=== PATIENT | female | born 1940 | race Caucasian/White ===

== ENCOUNTER → 2016-05-11 | Outpatient (REF) | payer MEDICARE, OTHER | LOC: M SMT 13:33 | PROVIDERS: ATTEND Urology | DX: Z85.51 Personal history of malignant neoplasm of bladder (principal) ==

== ENCOUNTER → 2016-07-08 | Outpatient (CLI) | payer MEDICARE, OTHER ==
[2016-07-08 12:50] LABS: BASO % 0.6 % (0.0-1.0); EOS # 0.2 K/mm3 (0.0-0.50); LARGE UNSTAINED CELL # 0.1 K/mm3 (0.0-0.4); LARGE UNSTAINED CELL % 2.1 % (0.0-4.0); LYMPH # 1.6 K/mm3 (1.5-4.5); LYMPH % 20.2 % (24.0-44.0); MEAN CORPUSCULAR HEMOGLOBIN 31.8 pg (27.0-33.0); MEAN CORPUSCULAR HGB CONC 34.9 g/dl (32.0-36.5); MEAN CORPUSCULAR VOLUME 91.3 fl (80.0-96.0); MONO # 0.4 K/mm3 (0.0-0.8); MONO % 5.4 % (0.0-5.0); NEUTROPHILS # 4.8 K/mm3 (1.8-7.7); NEUTROPHILS % 68.9 % (36.0-66.0); PLATELET COUNT, AUTOMATED 200 k/mm3 (150-450); RED CELL DISTRIBUTION WIDTH 12.6 % (11.5-14.5)
[2016-07-08 13:40] LABS: ALBUMIN 3.8 GM/DL (3.2-5.2); ALBUMIN/GLOBULIN RATIO 1.15 (1.00-1.93); ALKALINE PHOSPHATASE 90 U/L (45-117); ALT/SGPT 29 U/L (12-78); ANION GAP 8 MEQ/L (8-16); AST/SGOT 22 U/L (15-37); BILIRUBIN,TOTAL 0.6 MG/DL (0.2-1.0); BLOOD UREA NITROGEN 12 MG/DL (7-18); CALCIUM LEVEL 8.9 MG/DL (8.8-10.2); CARBON DIOXIDE LEVEL 30 MEQ/L (21-32); CHLORIDE LEVEL 105 MEQ/L (98-107); CHOLESTEROL LEVEL 215 MG/DL (<200); CREATININE FOR GFR 0.84 MG/DL (0.55-1.02); FREE T4 1.33 NG/DL (0.76-1.46); GLOMERULAR FILTRATION RATE > 60.0 (>39); GLUCOSE, FASTING 120 MG/DL (83-110); POTASSIUM SERUM 3.9 MEQ/L (3.5-5.1); SODIUM LEVEL 143 MEQ/L (136-145); TOTAL PROTEIN 7.1 GM/DL (6.4-8.2); TRIGLYCERIDES LEVEL 233 MG/DL (<150)
== END ==
LOC: M LAB 11:47
PROVIDERS: ATTEND Family Medicine
DX: I10 Essential (primary) hypertension (principal); R73.01 Impaired fasting glucose; E03.9 Hypothyroidism, unspecified

== ENCOUNTER → 2016-09-07 | Outpatient (CLI) | payer MEDICARE, OTHER ==
--- NOTE | 2016-09-07 15:55 | REPMRS ---
Patient History The patient states she has not had a clinical breast exam in over a year. Patient is postmenopausal, has history of bladder cancer at age 66, had previous chemotherapy at age 66, and is nulliparous. No known family history of cancer. Benign FNA biopsy of the left breast, 1984. Digital Woman Screen Mammo: September 07, 2016 - Exam #: [id number] Bilateral CC and MLO view(s) were taken. Technologist: Radha Rao, Technologist Prior study comparison: August 30, 2015, digital woman screen mammo performed at [facility] [place] to [facility]. August 29, 2014, digital woman screen mammo performed at [facility] [place] to [facility]. FINDINGS: There are scattered fibroglandular densities. There has been no change in the appearance of the mammogram from the prior studies. There is a moderate amount of residual fibroglandular tissue which is moderately dense and fairly symmetric. There is no interval development of dominant mass, architectural distortion, or clustered microcalcification suggestive of malignancy. There are scattered, small, benign calcifications of doubtful clinical significance. No significant changes when compared with prior studies. ASSESSMENT: BI-RADS/ACR category 2 mammogram. Benign finding(s). Recommendation Routine screening mammogram in 1 year (for women over age 40). This mammogram was interpreted with the aid of an FDA-approved computer-aided dectection system. A. Negative x-ray reports should not delay biopsy if a dominant or clinically suspicious mass is present. B. Four to eight percent of cancers are not identified by mammography. C. Adenosis and dense breast may obscure an underlying neoplasm. Electronically Signed By: Jasbir Fitzpatrick MD 09/07/16 [id number]
--- NOTE | 2016-09-09 10:53 | DEXA ---
AP SPINE L1 - L4 1.101 -0.8 1.0 LT FEMUR TOTAL 0.901 -0.8 0.8 RT FEMUR TOTAL 0.906 -0.8 0.9 TOTAL BODY TOTAL OTHER DUAL FEMUR FRAX* ASSESSMENT Risk factors: History of adult fracture. 10 year probability of fracture Major osteoporotic fracture 19.0 % Hip fracture 4.3 % COMMENTS: Normal bone densitometry of the spine. There is low bone density of the left hip based on femoral neck T score -1.8 left. There is low bone density of the right hip based on femoral neck T score -2.0 right. There is degenerative change in the spine which may artificially elevate the BMD. The increased density of the spine does represent a significant change since 06/2011. The decreased density of the left hip does not represent a significant change since 08/13/2011. The increased density of the right hip does represent a significant change. The density of the spine has increased 5.0% since the initial exam on 2001. The spine density has increased 5.5% since the most recent exam on 08/13/2011. The density of the left hip has decreased 2.0% since the initial exam on 2001. The density of the left hip has decreased 1.2% since the most recent exam on 06/2011. The density of the right hip has increased 2.7% since the initial exam on 2001. The density of the right hip has increased 2.0% since the most recent exam on . FOLLOW-UP: Recommendation for the next bone density exam: 2 years. SERGIO
== END ==
LOC: M WHC 13:21
PROVIDERS: ATTEND Family Medicine
DX: Z12.31 Encounter for screening mammogram for malignant neoplasm of breast (principal); Z13.820 Encounter for screening for osteoporosis; Z78.0 Asymptomatic menopausal state
CPT/HCPCS: 77080; G0202

== ENCOUNTER → 2017-01-28 | Outpatient (CLI) | payer MEDICARE, OTHER ==
[2017-01-28 16:42] LABS: BASO # 0.1 10^3/uL (0.0-0.2); BASO % 0.9 % (0.0-1.0); EOS # 0.2 10^3/uL (0.0-0.50); EOS % 3.1 % (0.0-3.0); IMMATURE GRANULOCYTE % 0.3 % (0-0); LYMPH # 1.3 10^3/uL (1.5-4.5); LYMPH % 20.5 % (24.0-44.0); MEAN CORPUSCULAR HEMOGLOBIN 31.4 pg (27.0-33.0); MEAN CORPUSCULAR HGB CONC 33.5 g/dl (32.0-36.5); MEAN CORPUSCULAR VOLUME 93.6 fl (80.0-96.0); MONO # 0.6 10^3/uL (0.0-0.8); MONO % 8.9 % (0.0-5.0); NEUTROPHILS # 4.3 10^3/uL (1.8-7.7); NEUTROPHILS % 66.3 % (36.0-66.0); PLATELET COUNT, AUTOMATED 229 10^3/uL (150-450); RED CELL DISTRIBUTION WIDTH 12.3 % (11.5-14.5); WHITE BLOOD COUNT 6.4 10^3/uL (4.0-10.0)
[2017-01-28 17:01] LABS: ALBUMIN 4.2 GM/DL (3.2-5.2); ALBUMIN/GLOBULIN RATIO 1.27 (1.00-1.93); ALKALINE PHOSPHATASE 82 U/L (45-117); ALT/SGPT 37 U/L (12-78); ANION GAP 7 MEQ/L (8-16); AST/SGOT 27 U/L (7-37); BILIRUBIN,TOTAL 0.8 MG/DL (0.2-1.0); BLOOD UREA NITROGEN 14 MG/DL (7-18); CALCIUM LEVEL 8.8 MG/DL (8.8-10.2); CARBON DIOXIDE LEVEL 31 MEQ/L (21-32); CHLORIDE LEVEL 106 MEQ/L (98-107); CHOLESTEROL LEVEL 242 MG/DL (<200); CREATININE FOR GFR 0.83 MG/DL (0.55-1.02); FREE T4 1.37 NG/DL (0.76-1.46); GLOMERULAR FILTRATION RATE > 60.0 (>39); GLUCOSE, FASTING 120 MG/DL (83-110); POTASSIUM SERUM 4.2 MEQ/L (3.5-5.1); SODIUM LEVEL 144 MEQ/L (136-145); TOTAL PROTEIN 7.5 GM/DL (6.4-8.2); TRIGLYCERIDES LEVEL 248 MG/DL (<150)
== END ==
LOC: M WUC 11:40
PROVIDERS: ATTEND Family Medicine
DX: I10 Essential (primary) hypertension (principal); E03.9 Hypothyroidism, unspecified; R73.01 Impaired fasting glucose

== ENCOUNTER → 2017-09-16 | Outpatient (CLI) | payer MEDICARE, OTHER | LOC: M WHC 13:27 | DX: Z12.31 Encounter for screening mammogram for malignant neoplasm of breast (principal); N60.31 Fibrosclerosis of right breast; N60.32 Fibrosclerosis of left breast | CPT/HCPCS: 77067 ==

== ENCOUNTER → 2018-01-07 | Outpatient (REF) | payer MEDICARE, OTHER ==
[2018-01-07 13:49] LABS: BASO # 0.1 10^3/uL (0.0-0.2); BASO % 0.6 % (0.0-1.0); EOS # 0.1 10^3/uL (0.0-0.50); EOS % 1.1 % (0.0-3.0); HEMATOCRIT 45.6 % (36.0-47.0); HEMOGLOBIN 14.9 g/dl (12.0-15.5); IMMATURE GRANULOCYTE % 0.4 % (0-3.0); LYMPH # 1.1 10^3/uL (1.5-4.5); LYMPH % 13.9 % (24.0-44.0); MEAN CORPUSCULAR HEMOGLOBIN 31.1 pg (27.0-33.0); MEAN CORPUSCULAR HGB CONC 32.7 g/dl (32.0-36.5); MEAN CORPUSCULAR VOLUME 95.2 fl (80.0-96.0); MONO # 0.6 10^3/uL (0.0-0.8); MONO % 7.1 % (0.0-5.0); NEUTROPHILS # 6.3 10^3/uL (1.8-7.7); NEUTROPHILS % 76.9 % (36.0-66.0); PLATELET COUNT, AUTOMATED 270 10^3/uL (150-450); RED BLOOD COUNT 4.79 10^6/uL (4.00-5.40); WHITE BLOOD COUNT 8.2 10^3/uL (4.0-10.0)
[2018-01-07 14:19] LABS: ALBUMIN 4.1 GM/DL (3.2-5.2); ALBUMIN/GLOBULIN RATIO 1.28 (1.00-1.93); ALKALINE PHOSPHATASE 91 U/L (45-117); ALT/SGPT 25 U/L (12-78); ANION GAP 8 MEQ/L (8-16); AST/SGOT 20 U/L (7-37); BILIRUBIN,TOTAL 0.6 MG/DL (0.2-1.0); BLOOD UREA NITROGEN 13 MG/DL (7-18); CALCIUM LEVEL 9.3 MG/DL (8.8-10.2); CARBON DIOXIDE LEVEL 31 MEQ/L (21-32); CHLORIDE LEVEL 105 MEQ/L (98-107); CREATININE FOR GFR 1.02 MG/DL (0.55-1.30); FREE T4 1.36 NG/DL (0.76-1.46); GLOMERULAR FILTRATION RATE 56.2 (>39); GLUCOSE, FASTING 123 MG/DL (70-100); POTASSIUM SERUM 4.3 MEQ/L (3.5-5.1); RHEUMATOID FACTOR QUANT < 10.0 IU/ML (<15.0); SODIUM LEVEL 144 MEQ/L (136-145); THYROID STIMULATING HORMONE 0.877 uIU/ML (0.358-3.740); TOTAL PROTEIN 7.3 GM/DL (6.4-8.2); VITAMIN B12 LEVEL 466 PG/ML
[2018-01-07 14:21] LABS: FOLATE > 24.0 NG/ML
[2018-01-07 14:25] LABS: ERYTHROCYTE SEDIMENTATION RATE 20 mm/hr (0-30)
[2018-01-12 08:06] LABS: ANTINUCLEAR ANTIBODIES DIRECT Negative (Negative); VITAMIN B6,PYRIDOXAL PHOSPHATE 9.3 ug/L (2.0-32.8); VITAMIN E(ALPHA TOCOPHEROL) 20.1 mg/L (9.0-29.0); VITAMIN E(GAMMA TOCOPHEROL) 1.4 mg/L (0.5-4.9)
== END ==
LOC: M LABNEURO 10:16
DX: E07.9 Disorder of thyroid, unspecified (principal); F03.90 Unspecified dementia, unspecified severity, without behavioral disturbance, psychotic disturbance, mood disturbance, and anxiety; Z11.3 Encounter for screening for infections with a predominantly sexual mode of transmission
CPT/HCPCS: 82746

== ENCOUNTER → 2018-08-04 | Outpatient (CLI) | payer MEDICARE, OTHER ==
[2018-08-04 20:13] LABS: HEMATOCRIT 40.9 % (36.0-47.0); HEMOGLOBIN 13.6 g/dl (12.0-15.5); MEAN CORPUSCULAR HEMOGLOBIN 30.7 pg (27.0-33.0); MEAN CORPUSCULAR HGB CONC 33.3 g/dl (32.0-36.5); MEAN CORPUSCULAR VOLUME 92.3 fl (80.0-96.0); PLATELET COUNT, AUTOMATED 257 10^3/uL (150-450); RED BLOOD COUNT 4.43 10^6/uL (4.00-5.40); WHITE BLOOD COUNT 9.4 10^3/uL (4.0-10.0)
[2018-08-04 20:30] LABS: HEMOGLOBIN A1c 6.3 %
[2018-08-04 20:32] LABS: ALBUMIN 3.5 GM/DL (3.2-5.2); ALT/SGPT 21 U/L (12-78); BILIRUBIN,TOTAL 0.4 MG/DL (0.2-1.0); BLOOD UREA NITROGEN 11 MG/DL (7-18); CARBON DIOXIDE LEVEL 32 MEQ/L (21-32); CHLORIDE LEVEL 104 MEQ/L (98-107); CREATININE FOR GFR 0.92 MG/DL (0.55-1.30); FREE T3 3.1 PG/ML (2.2-4.0); FREE T4 1.65 NG/DL (0.76-1.46); GLOMERULAR FILTRATION RATE > 60.0 (>39); GLUCOSE, FASTING 137 MG/DL (70-100); POTASSIUM SERUM 3.5 MEQ/L (3.5-5.1); SODIUM LEVEL 141 MEQ/L (136-145); THYROID STIMULATING HORMONE 0.133 uIU/ML (0.358-3.740); TOTAL PROTEIN 6.8 GM/DL (6.4-8.2)
== END ==
LOC: M WUC 16:42
PROVIDERS: ATTEND Family Medicine
DX: E03.9 Hypothyroidism, unspecified (principal); R73.01 Impaired fasting glucose; I10 Essential (primary) hypertension

== ENCOUNTER → 2019-04-05 | Outpatient (CLI) | payer MEDICARE, OTHER ==
[2019-04-05 14:48] LABS: HEMATOCRIT 44.8 % (36.0-47.0); HEMOGLOBIN 14.9 g/dl (12.0-15.5); MEAN CORPUSCULAR HEMOGLOBIN 32.2 pg (27.0-33.0); MEAN CORPUSCULAR HGB CONC 33.3 g/dl (32.0-36.5); MEAN CORPUSCULAR VOLUME 96.8 fl (80.0-96.0); PLATELET COUNT, AUTOMATED 238 10^3/uL (150-450); RED BLOOD COUNT 4.63 10^6/uL (4.00-5.40); WHITE BLOOD COUNT 7.5 10^3/uL (4.0-10.0)
[2019-04-05 15:16] LABS: HEMOGLOBIN A1c 6.4 %
[2019-04-05 15:17] LABS: ALT/SGPT 23 U/L (12-78); BILIRUBIN,TOTAL 0.5 MG/DL (0.2-1.0); BLOOD UREA NITROGEN 14 MG/DL (7-18); CALCIUM LEVEL 9.4 MG/DL (8.8-10.2); CARBON DIOXIDE LEVEL 34 MEQ/L (21-32); CHLORIDE LEVEL 104 MEQ/L (98-107); CREATININE FOR GFR 0.95 MG/DL (0.55-1.30); FREE T3 1.9 PG/ML (2.2-4.0); FREE T4 0.98 NG/DL (0.76-1.46); GLOMERULAR FILTRATION RATE > 60.0 (>39); GLUCOSE, FASTING 113 MG/DL (70-100); POTASSIUM SERUM 3.8 MEQ/L (3.5-5.1); SODIUM LEVEL 141 MEQ/L (136-145)
== END ==
LOC: M LAB 13:51
PROVIDERS: ATTEND Family Medicine
DX: E03.9 Hypothyroidism, unspecified (principal); R73.01 Impaired fasting glucose; I10 Essential (primary) hypertension

== ENCOUNTER 2019-05-15 18:20 | Inpatient (IN) | payer MEDICARE, OTHER ==
[~2019-05-15] VITALS: Ht 160 cm; Wt 59.0 kg
[2019-05-15] MEDS ORDERED: HYDR12.55 PO ×2 (18:43→22:12)
[2019-05-15] MEDS ORDERED: OMEP-218 PO (18:43)
[2019-05-15] MEDS ORDERED: DONE10TA90 PO ×2 (18:43→22:12)
[2019-05-15] MEDS ORDERED: LEVO112T2 PO (18:43)
[2019-05-15] MEDS ORDERED: QUIN10TA32 PO ×2 (18:43→22:12)
[2019-05-15] MEDS ORDERED: PRAV20TA2 PO ×2 (18:43→22:12)
[2019-05-15 20:18] LABS: HEMOGLOBIN 14.8 g/dl (12.0-15.5); MEAN CORPUSCULAR HEMOGLOBIN 31.9 pg (27.0-33.0); MEAN CORPUSCULAR HGB CONC 33.6 g/dl (32.0-36.5); MEAN CORPUSCULAR VOLUME 94.8 fl (80.0-96.0); PLATELET COUNT, AUTOMATED 222 10^3/uL (150-450); RED BLOOD COUNT 4.64 10^6/uL (4.00-5.40); WHITE BLOOD COUNT 6.8 10^3/uL (4.0-10.0)
[2019-05-15 20:36] LABS: ERYTHROCYTE SEDIMENTATION RATE 24 mm/hr (0-30)
[2019-05-15 20:40] LABS: ALBUMIN 3.7 GM/DL (3.2-5.2); ALT/SGPT 20 U/L (12-78); BILIRUBIN,TOTAL 0.7 MG/DL (0.2-1.0); BLOOD UREA NITROGEN 9 MG/DL (7-18); CALCIUM LEVEL 9.1 MG/DL (8.8-10.2); CARBON DIOXIDE LEVEL 33 MEQ/L (21-32); CHLORIDE LEVEL 106 MEQ/L (98-107); CREATININE FOR GFR 0.84 MG/DL (0.55-1.30); GLOMERULAR FILTRATION RATE > 60.0 (>39); GLUCOSE, FASTING 86 MG/DL (70-100); POTASSIUM SERUM 3.9 MEQ/L (3.5-5.1); SODIUM LEVEL 141 MEQ/L (136-145); TOTAL PROTEIN 6.9 GM/DL (6.4-8.2)
[2019-05-15] MEDS: DOCUSATE SODIUM 100 MG CAP PO SCH (21:00)
--- NOTE | 2019-05-15 21:24 | REP ---
Portable chest x-ray: Single sitting AP view. History: Confusion. Comparison chest x-ray: March 20, 2009. Findings: The lungs are hyperinflated and free of infiltrate. Pleural angles are sharp. Heart is not enlarged. Aorta is tortuous and calcific. There is a mild levoconvex curve and degenerative change in the thoracic spine. Pulmonary vasculature is not increased. Impression: Hyperinflation consistent with COPD. No acute disease. Electronically Signed by Dhruv Urbina MD 05/15/2019 09:15 P
--- NOTE | 2019-05-15 21:45 | REPVR ---
PROCEDURE INFORMATION: Exam: CT Head Without Contrast Exam date and time: 05/15/2019 7:27 PM Age: 78 years old Clinical indication: Altered mental status/memory loss; Additional info: Confusion TECHNIQUE: Imaging protocol: Computed tomography of the head without contrast. Radiation optimization: All CT scans at this facility use at least one of these dose optimization techniques: automated exposure control; mA and/or kV adjustment per patient size (includes targeted exams where dose is matched to clinical indication); or iterative reconstruction. COMPARISON: CT Head without contrast 10/17/2012 11:32 AM FINDINGS: Brain: No acute intracranial hemorrhage is visualized. The white-sainz differentiation is preserved demonstrating no acute territorial type infarct. There are scattered foci of white matter hypodensity, likely representing small vessel ischemic disease in a patient this age. The acuity of the white matter disease is indeterminate. There is no midline shift. Ventricles: There is mild to moderate prominence of the ventricles and sulci, compatible with atrophy. Bones/joints: The calvarium demonstrates no evidence for a depressed fracture. Sinuses: Visualized sinuses are unremarkable. No fluid levels. Mastoid air cells: No mastoid effusion. Soft tissues: Unremarkable. Vasculature: Intracranial atherosclerosis visualized. IMPRESSION: 1. No acute intracranial hemorrhage or acute territorial type infarct. 2. There are scattered foci of white matter hypodensity, likely representing small vessel ischemic disease in a patient this age. 3. Mild to moderate atrophy. This has slightly progressed. Electronically signed by: Keven Horan On 05/15/2019 21:44:43 PM
[2019-05-15] MEDS ORDERED: SYNT112T2 PO (22:12)
[2019-05-15] MEDS ORDERED: VITMTA PO (22:12)
[2019-05-15] MEDS ORDERED: OMEP1CAP73 PO (22:12)
[2019-05-15] MEDS ORDERED: OYST1TAB PO (22:12)
[2019-05-15 22:17] LABS: THYROID STIMULATING HORMONE 0.987 uIU/ML (0.358-3.740)
--- NOTE | 2019-05-15 22:28 | HPEPDOC ---
[facility] Medical History & Physical Date of Admission May 16, 2019 Date of Service: May 16, 2019 Primary Care Physician: MIRANDA NOLAND MD [facility] Attending Physician: ROBIN OCHOA MD History and Physical TIME OF SERVICE: 10 PM CHIEF COMPLAINT: Brought by EMS HISTORY OF PRESENT ILLNESS: The patient was unable to give details as to why she was in the hospital, the majority the history was obtained from ER staff and chart review. This is a 78-year-old female called 911 because she couldn't find her . Unfortunately, her has was placed in hospice house 2 days ago. EMS brought her to the hospital because she was confused, didn't have food or toiletries at home. During my assessment she denied having any pain, fevers, chills, or any acute complaints. 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 HOME MEDICATIONS: Please see below. PHYSICAL EXAMINATION: Vital Signs Date Time Temp Pulse Resp B/P (MAP) Pulse Ox O2 Delivery O2 Flow Rate FiO2 05/15/19 18:25 63 18 191/80 05/15/19 18:37 98.3 05/15/19 19:00 97 Room Air GEN: well-nourished / well developed/ NAD HEENT: NCAT / lips acyanotic /mucus membranes moist and pink CVS: RRR/NMRG LUNGS: able to speak full sentences without stopping to take a breath /lungs are clear to auscultation bilaterally on room air ABDOMEN: Contour (flat) / soft & not tender with palpation NEURO: CN 2-12 are grossly intact / speech is not dysarthric PSYCH: alert and oriented to person & place / able to understand and follow all commands LABORATORY DATA: Urine Color YELLOW, Urine Appearance CLEAR, Urine pH 6.0, Urine Specific [place] 1.018, Urine Protein NEGATIVE, Urine Glucose (UA) NEGATIVE, Urine Ketones TRACEH, Urine Blood NEGATIVE, Urine Nitrite NEGATIVE, Urine Bilirubin NEGATIVE, Urine Urobilinogen 0.2, Urine Leukocyte Esterase NEGATIVE, Urine WBC (Auto) 0, Urine RBC (Auto) 5H, Urine Hyaline Casts (Auto) 0, Urine Bacteria (Auto) NEGATIVE, Urine Squamous Epithelial Cells 0, Urine Mucus (Auto) SMALL, Urine Sperm (Auto) 05/15/19 19:55: Nucleated Red Blood Cells % (auto) 0.0, Erythrocyte Sedimentation Rate 24, Anion Gap 2L, Glomerular Filtration Rate > 60.0, Calcium Level 9.1, Total Bilirubin 0.7, Aspartate Amino Transf (AST/SGOT) 21, Alanine Aminotransferase (ALT/SGPT) 20, Alkaline Phosphatase 78, C-Reactive Protein, Quantitative 0.50H, Total Protein 6.9, Albumin 3.7, Albumin/Globulin Ratio 1.16, Thyroid Stimulating Hormone (TSH) 0.987 IMAGING: CT head IMPRESSION: 1. No acute intracranial hemorrhage or acute territorial type infarct. 2. There are scattered foci of white matter hypodensity, likely representing small vessel ischemic disease in a patient this age. 3. Mild to moderate atrophy. This has slightly progressed." Chest x-ray "Impression: Hyperinflation consistent with COPD. No acute disease." ASSESSMENT: Ms. Cortez is a 78-year-old with a history of hypothyroidism, GERD, hx of exercise-induced asthma, FANNY, chornic HTN, and history of bladder cancer who is admitted for evaluation of encephalopathy. PLAN: 1. Encephalopathy vs Dementia The initial workup including CBC, BMP, LFTs, TSH and CTof the head was unremarkable. She has underlying dementia; it is also possible that she may have had an acute stress reaction because her is suddenly not present Plan: admit to medical floor / f/u B12, RBC folate / PFS consult for possible placement vs ct home with family members if we are able to locate any family members she can move in with / c/w donepezil 2. Chronic HTN- HTCZ, quinapril 3. Hypothyroidism - levothyroxine 4. Dyslipidemia - pravastatin 5. GERD - omeprazole DVT PROPHYLAXIS: SCDs DISPOSITION: likely placement after more than 2 midnight's stay Home Medications Scheduled Calcium Carbonate (Calcium) 500 Mg Tablet, 500 MG PO BID Donepezil HCl (Donepezil HCl) 10 Mg Tablet, 10 MG PO DAILY Hydrochlorothiazide (Hydrochlorothiazide) 12.5 Mg Tablet, 12.5 MG PO DAILY Levothyroxine Sodium (Synthroid) 112 Mcg Tablet, 112 MCG PO DAILY Multivitamins (Thera M Plus Tablet) 1 Each Tablet, 1 TAB PO DAILY Omeprazole (Omeprazole) 20 Mg Capsule.dr, 20 MG PO DAILY Pravastatin Sodium (Pravastatin Sodium) 20 Mg Tablet, 20 MG PO QHS Quinapril HCl (Quinapril HCl) 10 Mg Tablet, 10 MG PO DAILY Allergies Coded Allergies: Contrast Media (Verified Allergy, Intermediate, HIVES, 04/21/06) Tetanus Vaccines and Toxoid (Verified Allergy, Intermediate, HIVES, 05/15/19) Shrimp (Verified Allergy, Unknown, 04/21/06) atenolol (Verified Adverse Reaction, Intermediate, LOWERS BP, 05/15/19) pregabalin (Verified Adverse Reaction, Intermediate, FLASHES, 05/15/19) acetaminophen (Verified Adverse Reaction, Mild, NAUSEA/VOMITING, 05/15/19) hydrocodone (Verified Adverse Reaction, Mild, NAUSEA/VOMITING, 05/15/19) lidocaine (Verified Adverse Reaction, Mild, BURNING PAIN IN BACK, 05/15/19) meperidine (Verified Adverse Reaction, Mild, N/V, 05/15/19) A-FIB/CHADSVASC A-FIB History Current/History of A-Fib/PAF?: No Current PO Anticoag Therapy: No ROBIN OCHOA MD May 15, 2019 22:28
[2019-05-15] MEDS ORDERED: MAALOX 30 ML SUSP *UDC PO PRN (22:30)
[2019-05-15] MEDS ORDERED: PILL CUTTER 1 EACH XX PRN (23:30)
[2019-05-16 00:05] VITALS: BP 139/66
[2019-05-16 06:01] VITALS: BP 140/78
[2019-05-16 06:08] LABS: HEMATOCRIT 40.2 % (36.0-47.0)
[2019-05-16] MEDS: QUINAPRIL 20 MG TAB PO SCH (08:48)
[2019-05-16] MEDS: OMEPRAZOLE 20 MG CAP PO SCH (08:48)
[2019-05-16] MEDS: MULTIVITAMINS/MINERALS THERAP 1 TAB PO SCH (08:48)
[2019-05-16] MEDS: OYSTER SHELL CALCIUM 500 MG TAB PO SCH ×2 (08:49→21:58)
[2019-05-16] MEDS: DONEPEZIL 5 MG TAB PO SCH (08:49)
[2019-05-16] MEDS: DOCUSATE SODIUM 100 MG CAP PO SCH ×2 (08:49→21:57)
[2019-05-16] MEDS: LEVOTHYROXINE 112MCG TABLET (0.112MG) PO SCH (08:49)
[2019-05-16] MEDS: hydroCHLOROthiazide 12.5 MG CAPSULE PO SCH (08:49)
--- NOTE | 2019-05-16 13:02 | IPNPDOC ---
Text Note Date of Service The patient was seen on 05/16/19. NOTE SUBJECTIVE: Patient is asking where is her . I explained that he is not home he was at hospice house and has recently . emmanuel did not seem to comprehend this. As few minutes later when i asked who is her HCP she says its her Wade. I asked again whom to call now she still says to talk with Wade. Denies any other complaints this am. She did say that her sister lives in [place]. Physical EXAM: VITALS: As below GEN: well-nourished / well developed/ NAD HEENT: NCAT / lips acyanotic /mucus membranes moist and pink CVS: RRR/NMRG LUNGS: able to speak full sentences without stopping to take a breath /lungs are clear to auscultation bilaterally on room air ABDOMEN: Contour (flat) / soft & not tender with palpation NEURO: CN 2-12 are grossly intact / speech is not dysarthric PSYCH: alert and oriented to person & place / able to understand and follow all commands LABS: reviewed. IMAGING: CT head IMPRESSION: 1. No acute intracranial hemorrhage or acute territorial type infarct. 2. There are scattered foci of white matter hypodensity, likely representing small vessel ischemic disease in a patient this age. 3. Mild to moderate atrophy. This has slightly progressed." Chest x-ray "Impression: Hyperinflation consistent with COPD. No acute disease." ASSESSMENT: Ms. 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 The patient was unable to give details as to why she was in the hospital, the majority the history was obtained from ER staff and chart review. Patient called 911 because she couldn't find her . Unfortunately, her has was placed in hospice house few days ago and has since passed. EMS brought her to the hospital because she was confused, didn't have food or toiletries at home. Worsening of Dementia. She has underlying dementia; it is also possible that she may have had an acute decompensation due to the stress reaction because her is suddenly not present will probably need shelter placement Chronic HTN- HTCZ, quinapril Hypothyroidism - levothyroxine Dyslipidemia - pravastatin GERD - omeprazole DVT PROPHYLAXIS: SCDs VS,Fishbone, I+O VS, Fishbone, I+O Laboratory Tests 05/15/19 19:55 05/16/19 05:51 Vital Signs Date Time Temp Pulse Resp B/P (MAP) Pulse Ox O2 Delivery O2 Flow Rate FiO2 05/16/19 08:48 140/78 05/16/19 06:01 98.4 51 17 96 Room Air I&O- Last 24 Hours up to 6 AM 05/16/19 05:59 Intake Total 100 ml Output Total 500 ml Balance -400 ml BLANCO ALVAREZ MD May 16, 2019 13:02
[2019-05-16 13:59] VITALS: BP 122/62
[2019-05-16] MEDS: RAMELTEON 8 MG TAB (ROZEREM) PO PRN (21:57)
[2019-05-16] MEDS: ACETAMINOPHEN 650MG ER TAB (TYLENOL ARTHRITIS) PO PRN (21:57)
[2019-05-16] MEDS: PRAVASTATIN 20 MG TAB PO SCH (21:57)
[2019-05-16 22:00] VITALS: BP 126/70
[2019-05-17 06:00] VITALS: BP 123/65
[2019-05-17] MEDS: QUINAPRIL 20 MG TAB PO SCH (08:50)
[2019-05-17] MEDS: LEVOTHYROXINE 112MCG TABLET (0.112MG) PO SCH (08:50)
[2019-05-17] MEDS: DONEPEZIL 5 MG TAB PO SCH (08:50)
[2019-05-17] MEDS: OYSTER SHELL CALCIUM 500 MG TAB PO SCH ×2 (08:51→20:30)
[2019-05-17] MEDS: OMEPRAZOLE 20 MG CAP PO SCH (08:51)
[2019-05-17] MEDS: hydroCHLOROthiazide 12.5 MG CAPSULE PO SCH (08:51)
[2019-05-17] MEDS: MULTIVITAMINS/MINERALS THERAP 1 TAB PO SCH (08:51)
[2019-05-17] MEDS: DOCUSATE SODIUM 100 MG CAP PO SCH ×2 (09:00→20:30)
[2019-05-17] MEDS: PRAVASTATIN 20 MG TAB PO SCH (20:30)
[2019-05-17] MEDS: ACETAMINOPHEN 650MG ER TAB (TYLENOL ARTHRITIS) PO PRN (20:30)
[2019-05-17] MEDS: RAMELTEON 8 MG TAB (ROZEREM) PO PRN (20:30)
[2019-05-18 05:54] VITALS: BP 149/73
[2019-05-18] MEDS: DOCUSATE SODIUM 100 MG CAP PO SCH (08:27)
[2019-05-18] MEDS: hydroCHLOROthiazide 12.5 MG CAPSULE PO SCH (09:38)
[2019-05-18] MEDS: OMEPRAZOLE 20 MG CAP PO SCH (09:38)
[2019-05-18] MEDS: QUINAPRIL 20 MG TAB PO SCH (09:38)
[2019-05-18] MEDS: DONEPEZIL 5 MG TAB PO SCH (09:38)
[2019-05-18] MEDS: LEVOTHYROXINE 112MCG TABLET (0.112MG) PO SCH (09:39)
[2019-05-18] MEDS: MULTIVITAMINS/MINERALS THERAP 1 TAB PO SCH (09:39)
[2019-05-18] MEDS: OYSTER SHELL CALCIUM 500 MG TAB PO SCH ×2 (09:39→20:04)
[2019-05-18] MEDS: ACETAMINOPHEN 650MG ER TAB (TYLENOL ARTHRITIS) PO PRN (18:31)
[2019-05-18] MEDS: PRAVASTATIN 20 MG TAB PO SCH (20:03)
[2019-05-18] MEDS: RAMELTEON 8 MG TAB (ROZEREM) PO PRN (20:04)
[2019-05-19 06:00] VITALS: BP 131/72
[2019-05-19] MEDS: hydroCHLOROthiazide 12.5 MG CAPSULE PO SCH (08:27)
[2019-05-19] MEDS: DONEPEZIL 5 MG TAB PO SCH (08:27)
[2019-05-19] MEDS: OMEPRAZOLE 20 MG CAP PO SCH (08:27)
[2019-05-19] MEDS: OYSTER SHELL CALCIUM 500 MG TAB PO SCH ×2 (08:27→21:09)
[2019-05-19] MEDS: MULTIVITAMINS/MINERALS THERAP 1 TAB PO SCH (08:27)
[2019-05-19] MEDS: LEVOTHYROXINE 112MCG TABLET (0.112MG) PO SCH (08:27)
[2019-05-19] MEDS: QUINAPRIL 20 MG TAB PO SCH (08:27)
[2019-05-19] MEDS: ACETAMINOPHEN 650MG ER TAB (TYLENOL ARTHRITIS) PO PRN (13:05)
[2019-05-19] MEDS ORDERED: QUEtiapine FUMARATE 25 MG TAB PO ONE (16:00)
[2019-05-19] MEDS: PRAVASTATIN 20 MG TAB PO SCH (21:09)
[2019-05-19] MEDS: RAMELTEON 8 MG TAB (ROZEREM) PO PRN (21:09)
[2019-05-20 06:29] VITALS: BP 133/69
[2019-05-20] MEDS: QUINAPRIL 20 MG TAB PO SCH (08:52)
[2019-05-20] MEDS: hydroCHLOROthiazide 12.5 MG CAPSULE PO SCH (08:52)
[2019-05-20] MEDS: OMEPRAZOLE 20 MG CAP PO SCH (08:52)
[2019-05-20] MEDS: DONEPEZIL 5 MG TAB PO SCH (08:52)
[2019-05-20] MEDS: OYSTER SHELL CALCIUM 500 MG TAB PO SCH ×2 (08:52→21:07)
[2019-05-20] MEDS: MULTIVITAMINS/MINERALS THERAP 1 TAB PO SCH (08:52)
[2019-05-20] MEDS: LEVOTHYROXINE 112MCG TABLET (0.112MG) PO SCH (08:54)
[2019-05-20] MEDS ORDERED: QUEtiapine FUMARATE 25 MG TAB PO ONE (13:45)
[2019-05-20] MEDS ORDERED: QUEtiapine FUMARATE 12.5 MG HALF-TAB PO ONE (14:00)
[2019-05-20] MEDS ORDERED: QUEtiapine FUMARATE 25 MG TAB PO SCH (21:00)
[2019-05-20] MEDS: PRAVASTATIN 20 MG TAB PO SCH (21:07)
[2019-05-20] MEDS: RAMELTEON 8 MG TAB (ROZEREM) PO PRN (21:07)
[2019-05-20] MEDS: ACETAMINOPHEN 650MG ER TAB (TYLENOL ARTHRITIS) PO SCH (21:07)
[2019-05-21 06:00] VITALS: BP 138/72
[2019-05-21] MEDS: ACETAMINOPHEN 650MG ER TAB (TYLENOL ARTHRITIS) PO SCH ×3 (06:32→20:37)
[2019-05-21] MEDS ORDERED: QUEtiapine FUMARATE 12.5 MG HALF-TAB PO SCH (09:00)
[2019-05-21] MEDS: DONEPEZIL 5 MG TAB PO SCH (09:22)
[2019-05-21] MEDS: OMEPRAZOLE 20 MG CAP PO SCH (09:22)
[2019-05-21] MEDS: LEVOTHYROXINE 112MCG TABLET (0.112MG) PO SCH (09:22)
[2019-05-21] MEDS: QUINAPRIL 20 MG TAB PO SCH (09:22)
[2019-05-21] MEDS: OYSTER SHELL CALCIUM 500 MG TAB PO SCH ×2 (09:22→20:37)
[2019-05-21] MEDS: hydroCHLOROthiazide 12.5 MG CAPSULE PO SCH (09:23)
[2019-05-21] MEDS: MULTIVITAMINS/MINERALS THERAP 1 TAB PO SCH (09:23)
[2019-05-21] MEDS: QUEtiapine FUMARATE 12.5 MG HALF-TAB PO SCH ×2 (12:00→14:41)
[2019-05-21] MEDS: RAMELTEON 8 MG TAB (ROZEREM) PO PRN (20:37)
[2019-05-21] MEDS: QUEtiapine FUMARATE 12.5 MG HALF-TAB PO PRN (20:37)
[2019-05-21] MEDS: PRAVASTATIN 20 MG TAB PO SCH (20:37)
[2019-05-21 22:12] VITALS: BP 145/50
[2019-05-21] MEDS: MAALOX 30 ML SUSP *UDC PO PRN (22:41)
[2019-05-22 05:59] VITALS: BP 144/70
[2019-05-22] MEDS: ACETAMINOPHEN 650MG ER TAB (TYLENOL ARTHRITIS) PO SCH ×3 (05:59→21:08)
[2019-05-22] MEDS: QUINAPRIL 20 MG TAB PO SCH (08:45)
[2019-05-22] MEDS: DONEPEZIL 5 MG TAB PO SCH (08:45)
[2019-05-22] MEDS: LEVOTHYROXINE 112MCG TABLET (0.112MG) PO SCH (08:45)
[2019-05-22] MEDS: OYSTER SHELL CALCIUM 500 MG TAB PO SCH ×2 (08:46→20:02)
[2019-05-22] MEDS: hydroCHLOROthiazide 12.5 MG CAPSULE PO SCH (08:46)
[2019-05-22] MEDS: MULTIVITAMINS/MINERALS THERAP 1 TAB PO SCH (08:46)
[2019-05-22] MEDS: OMEPRAZOLE 20 MG CAP PO SCH (08:49)
[2019-05-22] MEDS: QUEtiapine FUMARATE 12.5 MG HALF-TAB PO PRN (20:01)
[2019-05-22] MEDS: PRAVASTATIN 20 MG TAB PO SCH (20:02)
[2019-05-22] MEDS: RAMELTEON 8 MG TAB (ROZEREM) PO PRN (21:08)
[2019-05-23 06:42] VITALS: BP 144/69
[2019-05-23] MEDS: ACETAMINOPHEN 650MG ER TAB (TYLENOL ARTHRITIS) PO SCH ×3 (06:42→21:08)
[2019-05-23] MEDS: DONEPEZIL 5 MG TAB PO SCH (08:37)
[2019-05-23] MEDS: MULTIVITAMINS/MINERALS THERAP 1 TAB PO SCH (08:38)
[2019-05-23] MEDS: OYSTER SHELL CALCIUM 500 MG TAB PO SCH ×2 (08:38→20:48)
[2019-05-23] MEDS: LEVOTHYROXINE 112MCG TABLET (0.112MG) PO SCH (08:38)
[2019-05-23] MEDS: OMEPRAZOLE 20 MG CAP PO SCH (08:39)
[2019-05-23] MEDS: hydroCHLOROthiazide 12.5 MG CAPSULE PO SCH (08:39)
[2019-05-23] MEDS: QUINAPRIL 20 MG TAB PO SCH (08:40)
[2019-05-23] MEDS: QUEtiapine FUMARATE 12.5 MG HALF-TAB PO PRN ×2 (11:03→21:08)
[2019-05-23] MEDS: RAMELTEON 8 MG TAB (ROZEREM) PO PRN (20:48)
[2019-05-23] MEDS: PRAVASTATIN 20 MG TAB PO SCH (20:48)
[2019-05-24 06:00] VITALS: BP 142/69
[2019-05-24] MEDS: ACETAMINOPHEN 650MG ER TAB (TYLENOL ARTHRITIS) PO SCH ×3 (06:11→21:01)
[2019-05-24] MEDS: QUINAPRIL 20 MG TAB PO SCH (08:03)
[2019-05-24] MEDS: OMEPRAZOLE 20 MG CAP PO SCH (08:03)
[2019-05-24] MEDS: MULTIVITAMINS/MINERALS THERAP 1 TAB PO SCH (08:03)
[2019-05-24] MEDS: OYSTER SHELL CALCIUM 500 MG TAB PO SCH ×2 (08:03→20:06)
[2019-05-24] MEDS: hydroCHLOROthiazide 12.5 MG CAPSULE PO SCH (08:04)
[2019-05-24] MEDS: DONEPEZIL 5 MG TAB PO SCH (08:04)
[2019-05-24] MEDS: LEVOTHYROXINE 112MCG TABLET (0.112MG) PO SCH (08:04)
[2019-05-24] MEDS: QUEtiapine FUMARATE 12.5 MG HALF-TAB PO PRN ×2 (13:30→20:06)
[2019-05-24] MEDS ORDERED: haloperidoL 1 MG TAB PO ONE (15:45)
[2019-05-24] MEDS ORDERED: HALOPERIDOL 5MG/ML VIAL (J1630 PER 1) IV PRN (16:30)
[2019-05-24] MEDS: haloperidoL 1 MG TAB PO PRN (18:10)
[2019-05-24] MEDS: PRAVASTATIN 20 MG TAB PO SCH (20:06)
[2019-05-24] MEDS: RAMELTEON 8 MG TAB (ROZEREM) PO PRN (20:06)
[2019-05-25 05:41] VITALS: BP 139/70
[2019-05-25 06:00] VITALS: BP 139/70
[2019-05-25] MEDS: ACETAMINOPHEN 650MG ER TAB (TYLENOL ARTHRITIS) PO SCH ×3 (06:50→20:18)
[2019-05-25] MEDS: OYSTER SHELL CALCIUM 500 MG TAB PO SCH ×2 (09:04→20:18)
[2019-05-25] MEDS: MULTIVITAMINS/MINERALS THERAP 1 TAB PO SCH (09:04)
[2019-05-25] MEDS: hydroCHLOROthiazide 12.5 MG CAPSULE PO SCH (09:05)
[2019-05-25] MEDS: QUINAPRIL 20 MG TAB PO SCH (09:05)
[2019-05-25] MEDS: LEVOTHYROXINE 112MCG TABLET (0.112MG) PO SCH (09:05)
[2019-05-25] MEDS: DONEPEZIL 5 MG TAB PO SCH (09:05)
[2019-05-25] MEDS: OMEPRAZOLE 20 MG CAP PO SCH (09:05)
[2019-05-25] MEDS: QUEtiapine FUMARATE 12.5 MG HALF-TAB PO PRN ×3 (09:06→20:18)
[2019-05-25] MEDS: haloperidoL 1 MG TAB PO PRN ×2 (09:06→14:38)
[2019-05-25] MEDS: RAMELTEON 8 MG TAB (ROZEREM) PO PRN (20:18)
[2019-05-25] MEDS: PRAVASTATIN 20 MG TAB PO SCH (20:18)
[2019-05-26 06:00] VITALS: BP 154/65
[2019-05-26] MEDS: ACETAMINOPHEN 650MG ER TAB (TYLENOL ARTHRITIS) PO SCH ×3 (06:08→19:54)
[2019-05-26] MEDS: QUINAPRIL 20 MG TAB PO SCH (08:18)
[2019-05-26] MEDS: DONEPEZIL 5 MG TAB PO SCH (08:18)
[2019-05-26] MEDS: LEVOTHYROXINE 112MCG TABLET (0.112MG) PO SCH (08:18)
[2019-05-26] MEDS: MULTIVITAMINS/MINERALS THERAP 1 TAB PO SCH (08:18)
[2019-05-26] MEDS: OYSTER SHELL CALCIUM 500 MG TAB PO SCH ×3 (08:18→20:02)
[2019-05-26] MEDS: hydroCHLOROthiazide 12.5 MG CAPSULE PO SCH (08:19)
[2019-05-26] MEDS: OMEPRAZOLE 20 MG CAP PO SCH (08:19)
--- NOTE | 2019-05-26 15:07 | ECGEPIP ---
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 Electronically Signed on 05-26-2019 15:06:31 EDT by Mike Wiley
[2019-05-26] MEDS: haloperidoL 1 MG TAB PO PRN (16:11)
[2019-05-26] MEDS: PRAVASTATIN 20 MG TAB PO SCH (19:53)
[2019-05-26] MEDS: RAMELTEON 8 MG TAB (ROZEREM) PO PRN (19:54)
[2019-05-26] MEDS: QUEtiapine FUMARATE 12.5 MG HALF-TAB PO PRN (19:54)
[2019-05-27] MEDS: ACETAMINOPHEN 650MG ER TAB (TYLENOL ARTHRITIS) PO SCH ×3 (06:16→21:23)
[2019-05-27 06:17] VITALS: BP 142/71
[2019-05-27] MEDS: OYSTER SHELL CALCIUM 500 MG TAB PO SCH ×2 (08:10→21:23)
[2019-05-27] MEDS: QUEtiapine FUMARATE 12.5 MG HALF-TAB PO PRN ×2 (08:10→13:43)
[2019-05-27] MEDS: LEVOTHYROXINE 112MCG TABLET (0.112MG) PO SCH (08:10)
[2019-05-27] MEDS: hydroCHLOROthiazide 12.5 MG CAPSULE PO SCH (08:11)
[2019-05-27] MEDS: MULTIVITAMINS/MINERALS THERAP 1 TAB PO SCH (08:11)
[2019-05-27] MEDS: QUINAPRIL 20 MG TAB PO SCH (08:11)
[2019-05-27] MEDS: DONEPEZIL 5 MG TAB PO SCH (08:11)
[2019-05-27] MEDS: OMEPRAZOLE 20 MG CAP PO SCH (08:11)
[2019-05-27] MEDS: haloperidoL 1 MG TAB PO PRN (13:43)
[2019-05-27] MEDS ORDERED: HALOPERIDOL 5MG/ML VIAL (J1630 PER 1) IV ONE (15:00)
[2019-05-27] MEDS ORDERED: LORazepam 2 MG TAB PO ONE (16:00)
[2019-05-27] MEDS: RAMELTEON 8 MG TAB (ROZEREM) PO PRN (21:23)
[2019-05-27] MEDS: PRAVASTATIN 20 MG TAB PO SCH (21:23)
[2019-05-28] MEDS: ACETAMINOPHEN 650MG ER TAB (TYLENOL ARTHRITIS) PO SCH ×3 (05:32→21:00)
[2019-05-28 06:00] VITALS: BP 137/69
[2019-05-28] MEDS: MULTIVITAMINS/MINERALS THERAP 1 TAB PO SCH (08:57)
[2019-05-28] MEDS: QUEtiapine FUMARATE 12.5 MG HALF-TAB PO PRN (08:57)
[2019-05-28] MEDS: OMEPRAZOLE 20 MG CAP PO SCH ×2 (08:58→20:12)
[2019-05-28] MEDS: LEVOTHYROXINE 112MCG TABLET (0.112MG) PO SCH (08:58)
[2019-05-28] MEDS: OYSTER SHELL CALCIUM 500 MG TAB PO SCH ×2 (08:58→20:12)
[2019-05-28] MEDS: DONEPEZIL 5 MG TAB PO SCH (08:58)
[2019-05-28] MEDS: QUINAPRIL 20 MG TAB PO SCH (08:58)
[2019-05-28] MEDS: hydroCHLOROthiazide 12.5 MG CAPSULE PO SCH (08:58)
[2019-05-28] MEDS: LORazepam 1 MG TAB PO SCH ×3 (11:02→23:05)
[2019-05-28] MEDS: CALCIUM CARBONATE 500 MG CHEW U/D PO PRN (14:21)
[2019-05-28] MEDS: MAALOX 30 ML SUSP *UDC PO PRN (14:21)
[2019-05-28 14:39] VITALS: BP 130/67
[2019-05-28] MEDS: RAMELTEON 8 MG TAB (ROZEREM) PO PRN (20:12)
[2019-05-28] MEDS: PRAVASTATIN 20 MG TAB PO SCH (20:12)
[2019-05-29] MEDS: ACETAMINOPHEN 650MG ER TAB (TYLENOL ARTHRITIS) PO SCH ×3 (05:47→21:51)
[2019-05-29] MEDS: LORazepam 1 MG TAB PO SCH ×4 (05:47→21:00)
[2019-05-29 06:00] VITALS: BP 133/66
[2019-05-29] MEDS: MULTIVITAMINS/MINERALS THERAP 1 TAB PO SCH (08:09)
[2019-05-29] MEDS: OYSTER SHELL CALCIUM 500 MG TAB PO SCH ×2 (08:09→21:00)
[2019-05-29] MEDS: LEVOTHYROXINE 112MCG TABLET (0.112MG) PO SCH (08:10)
[2019-05-29] MEDS: hydroCHLOROthiazide 12.5 MG CAPSULE PO SCH (08:10)
[2019-05-29] MEDS: DONEPEZIL 5 MG TAB PO SCH (08:10)
[2019-05-29] MEDS: OMEPRAZOLE 20 MG CAP PO SCH ×2 (08:10→21:00)
[2019-05-29] MEDS: QUINAPRIL 20 MG TAB PO SCH (08:11)
[2019-05-29] MEDS: PRAVASTATIN 20 MG TAB PO SCH (21:00)
[2019-05-29] MEDS: RAMELTEON 8 MG TAB (ROZEREM) PO PRN (21:51)
[2019-05-30] MEDS: LORazepam 1 MG TAB PO SCH ×4 (02:27→20:42)
[2019-05-30] MEDS: QUEtiapine FUMARATE 12.5 MG HALF-TAB PO PRN (04:14)
[2019-05-30] MEDS: ACETAMINOPHEN 650MG ER TAB (TYLENOL ARTHRITIS) PO SCH ×3 (05:23→22:00)
[2019-05-30 06:00] VITALS: BP 124/65
[2019-05-30] MEDS: DONEPEZIL 5 MG TAB PO SCH (10:26)
[2019-05-30] MEDS: QUINAPRIL 20 MG TAB PO SCH (10:26)
[2019-05-30] MEDS: hydroCHLOROthiazide 12.5 MG CAPSULE PO SCH (10:26)
[2019-05-30] MEDS: OMEPRAZOLE 20 MG CAP PO SCH ×2 (10:27→20:42)
[2019-05-30] MEDS: OYSTER SHELL CALCIUM 500 MG TAB PO SCH ×2 (10:27→20:42)
[2019-05-30] MEDS: LEVOTHYROXINE 112MCG TABLET (0.112MG) PO SCH (10:27)
[2019-05-30] MEDS: MULTIVITAMINS/MINERALS THERAP 1 TAB PO SCH (10:27)
[2019-05-30] MEDS: MAALOX 30 ML SUSP *UDC PO PRN (14:43)
[2019-05-30] MEDS: PRAVASTATIN 20 MG TAB PO SCH (20:41)
[2019-05-30] MEDS: RAMELTEON 8 MG TAB (ROZEREM) PO PRN (20:42)
[2019-05-31] MEDS: LORazepam 1 MG TAB PO SCH ×4 (02:49→20:38)
[2019-05-31 06:00] VITALS: BP 131/67
[2019-05-31] MEDS: ACETAMINOPHEN 650MG ER TAB (TYLENOL ARTHRITIS) PO SCH ×3 (06:00→20:38)
[2019-05-31] MEDS: LEVOTHYROXINE 112MCG TABLET (0.112MG) PO SCH (08:59)
[2019-05-31] MEDS: MULTIVITAMINS/MINERALS THERAP 1 TAB PO SCH (08:59)
[2019-05-31] MEDS: OMEPRAZOLE 20 MG CAP PO SCH ×2 (08:59→20:37)
[2019-05-31] MEDS: QUINAPRIL 20 MG TAB PO SCH (09:00)
[2019-05-31] MEDS: OYSTER SHELL CALCIUM 500 MG TAB PO SCH ×2 (09:00→20:38)
[2019-05-31] MEDS: hydroCHLOROthiazide 12.5 MG CAPSULE PO SCH (09:00)
[2019-05-31] MEDS: DONEPEZIL 5 MG TAB PO SCH (09:00)
[2019-05-31] MEDS ORDERED: LORazepam 2 MG/ML VIAL IM PRN (13:15)
[2019-05-31] MEDS: haloperidoL 1 MG TAB PO PRN (13:22)
[2019-05-31] MEDS: RAMELTEON 8 MG TAB (ROZEREM) PO PRN (20:37)
[2019-05-31] MEDS: PRAVASTATIN 20 MG TAB PO SCH (20:38)
[2019-06-01] MEDS: LORazepam 1 MG TAB PO SCH ×4 (03:00→20:02)
[2019-06-01 06:00] VITALS: BP 126/66
[2019-06-01] MEDS: ACETAMINOPHEN 650MG ER TAB (TYLENOL ARTHRITIS) PO SCH ×3 (06:00→20:02)
[2019-06-01] MEDS: LEVOTHYROXINE 112MCG TABLET (0.112MG) PO SCH (08:19)
[2019-06-01] MEDS: DONEPEZIL 5 MG TAB PO SCH (08:19)
[2019-06-01] MEDS: OYSTER SHELL CALCIUM 500 MG TAB PO SCH ×2 (08:19→20:01)
[2019-06-01] MEDS: OMEPRAZOLE 20 MG CAP PO SCH ×2 (08:19→20:02)
[2019-06-01] MEDS: MULTIVITAMINS/MINERALS THERAP 1 TAB PO SCH (08:20)
[2019-06-01] MEDS: hydroCHLOROthiazide 12.5 MG CAPSULE PO SCH (08:20)
[2019-06-01] MEDS: QUINAPRIL 20 MG TAB PO SCH (08:20)
[2019-06-01] MEDS: MAALOX 30 ML SUSP *UDC PO PRN (15:48)
[2019-06-01] MEDS: PRAVASTATIN 20 MG TAB PO SCH (20:02)
[2019-06-01] MEDS: RAMELTEON 8 MG TAB (ROZEREM) PO PRN (20:02)
[2019-06-02] MEDS: LORazepam 1 MG TAB PO SCH ×4 (03:00→21:54)
[2019-06-02] MEDS: ACETAMINOPHEN 650MG ER TAB (TYLENOL ARTHRITIS) PO SCH ×3 (06:03→21:54)
[2019-06-02] MEDS: LEVOTHYROXINE 112MCG TABLET (0.112MG) PO SCH (08:47)
[2019-06-02] MEDS: OYSTER SHELL CALCIUM 500 MG TAB PO SCH ×2 (08:47→21:54)
[2019-06-02] MEDS: hydroCHLOROthiazide 12.5 MG CAPSULE PO SCH (08:48)
[2019-06-02] MEDS: MULTIVITAMINS/MINERALS THERAP 1 TAB PO SCH (08:51)
[2019-06-02] MEDS: DONEPEZIL 5 MG TAB PO SCH (08:51)
[2019-06-02] MEDS: QUINAPRIL 20 MG TAB PO SCH (08:51)
[2019-06-02] MEDS: OMEPRAZOLE 20 MG CAP PO SCH ×2 (08:52→21:54)
[2019-06-02] MEDS: RAMELTEON 8 MG TAB (ROZEREM) PO PRN (21:54)
[2019-06-02] MEDS: PRAVASTATIN 20 MG TAB PO SCH (21:54)
[2019-06-03] MEDS: LORazepam 1 MG TAB PO SCH ×4 (03:00→20:28)
[2019-06-03 06:00] VITALS: BP 126/71
[2019-06-03] MEDS: ACETAMINOPHEN 650MG ER TAB (TYLENOL ARTHRITIS) PO SCH ×3 (06:00→20:29)
[2019-06-03] MEDS: QUINAPRIL 20 MG TAB PO SCH (10:01)
[2019-06-03] MEDS: LEVOTHYROXINE 112MCG TABLET (0.112MG) PO SCH (10:01)
[2019-06-03] MEDS: hydroCHLOROthiazide 12.5 MG CAPSULE PO SCH (10:01)
[2019-06-03] MEDS: OMEPRAZOLE 20 MG CAP PO SCH ×2 (10:01→20:28)
[2019-06-03] MEDS: OYSTER SHELL CALCIUM 500 MG TAB PO SCH ×2 (10:01→20:29)
[2019-06-03] MEDS: DONEPEZIL 5 MG TAB PO SCH (10:02)
[2019-06-03] MEDS: MULTIVITAMINS/MINERALS THERAP 1 TAB PO SCH (10:02)
[2019-06-03] MEDS: QUEtiapine FUMARATE 12.5 MG HALF-TAB PO PRN (18:56)
[2019-06-03] MEDS: PRAVASTATIN 20 MG TAB PO SCH (20:28)
[2019-06-03] MEDS: RAMELTEON 8 MG TAB (ROZEREM) PO PRN (20:29)
[2019-06-04] MEDS: LORazepam 1 MG TAB PO SCH ×4 (03:00→20:29)
[2019-06-04 06:34] VITALS: BP 125/69
[2019-06-04] MEDS: ACETAMINOPHEN 650MG ER TAB (TYLENOL ARTHRITIS) PO SCH ×3 (06:40→20:29)
[2019-06-04] MEDS: DONEPEZIL 5 MG TAB PO SCH (08:29)
[2019-06-04] MEDS: OMEPRAZOLE 20 MG CAP PO SCH ×2 (08:30→20:29)
[2019-06-04] MEDS: QUINAPRIL 20 MG TAB PO SCH (08:30)
[2019-06-04] MEDS: MULTIVITAMINS/MINERALS THERAP 1 TAB PO SCH (08:30)
[2019-06-04] MEDS: LEVOTHYROXINE 112MCG TABLET (0.112MG) PO SCH (08:30)
[2019-06-04] MEDS: hydroCHLOROthiazide 12.5 MG CAPSULE PO SCH (08:30)
[2019-06-04] MEDS: OYSTER SHELL CALCIUM 500 MG TAB PO SCH ×2 (08:30→20:29)
[2019-06-04] MEDS: PRAVASTATIN 20 MG TAB PO SCH (20:29)
[2019-06-04] MEDS: RAMELTEON 8 MG TAB (ROZEREM) PO PRN (20:33)
[2019-06-05] MEDS: LORazepam 1 MG TAB PO SCH ×4 (03:00→20:50)
[2019-06-05] MEDS: ACETAMINOPHEN 650MG ER TAB (TYLENOL ARTHRITIS) PO SCH ×3 (05:32→20:50)
[2019-06-05 05:37] VITALS: BP 125/67
[2019-06-05] MEDS: LEVOTHYROXINE 112MCG TABLET (0.112MG) PO SCH (08:28)
[2019-06-05] MEDS: OMEPRAZOLE 20 MG CAP PO SCH ×2 (08:28→20:49)
[2019-06-05] MEDS: MULTIVITAMINS/MINERALS THERAP 1 TAB PO SCH (08:28)
[2019-06-05] MEDS: OYSTER SHELL CALCIUM 500 MG TAB PO SCH ×2 (08:30→20:49)
[2019-06-05] MEDS: DONEPEZIL 5 MG TAB PO SCH (08:30)
[2019-06-05] MEDS: hydroCHLOROthiazide 12.5 MG CAPSULE PO SCH (08:30)
[2019-06-05] MEDS: QUINAPRIL 20 MG TAB PO SCH (08:30)
--- NOTE | 2019-06-05 16:28 | IPNPDOC ---
Text Note Date of Service The patient was seen on 06/05/19. NOTE Subjective: Patient continues to be upset in the morning about of her . No any acute events overnight VITAL SIGNS: Please see below. GENERAL: awake, alert, NAD HEENT: NCAT, anicteric sclera, CORDELL NECK: supple, no JVD CARDIOVASCULAR EXAMINATION: NS1S2, regular rate/rhythm RESPIRATORY EXAMINATION: CTA b/l, no wheezes/rales/rhonchi ABDOMINAL EXAMINATION: positive bowel sounds x 4, NT EXTREMITIES: no cyanosis, clubbing, edema SKIN: warm, no rashes. NEUROLOGICAL EXAMINATION: AAO x 3, no motor/sensory deficits ASSESSMENT: Patient is 78 years old female past mental history of dementia, hypothyroidism who was admitted with altered mental status. Patient was diagnosed with advanced dementia. Patient called 911 because she couldn't find her . Unfor tunately, her has was placed in hospice house few days ago and has since passed. EMS brought her to the hospital because she was confused, didn't have food or toiletries at home. Chronic HTN Blood pressures under control Continue home meds Hypothyroidism levothyroxine Dyslipidemia Continue statin GERD Continue with omeprazole Agitation/delirium/psychosis Patient intermittently developed agitation with psychotic features Haldol when necessary Seroquel daily at bedtime VS,Fishbone, I+O VS, Fishbone, I+O Vital Signs Date Time Temp Pulse Resp B/P (MAP) Pulse Ox O2 Delivery O2 Flow Rate FiO2 06/05/19 08:30 130/69 06/05/19 05:37 97.8 51 18 96 Room Air I&O- Last 24 Hours up to 6 AM 06/05/19 05:59 Intake Total 1060 ml Balance 1060 ml LALA GONZALEZ DO Jun 05, 2019 16:28
[2019-06-05] MEDS: RAMELTEON 8 MG TAB (ROZEREM) PO PRN (20:50)
[2019-06-05] MEDS: PRAVASTATIN 20 MG TAB PO SCH (20:50)
[2019-06-06] MEDS: ACETAMINOPHEN 650MG ER TAB (TYLENOL ARTHRITIS) PO SCH ×3 (03:56→19:55)
[2019-06-06] MEDS: LORazepam 1 MG TAB PO SCH ×4 (03:56→19:55)
[2019-06-06 06:00] VITALS: BP 125/67
[2019-06-06] MEDS: QUINAPRIL 20 MG TAB PO SCH (08:07)
[2019-06-06] MEDS: LEVOTHYROXINE 112MCG TABLET (0.112MG) PO SCH (08:07)
[2019-06-06] MEDS: DONEPEZIL 5 MG TAB PO SCH (08:07)
[2019-06-06] MEDS: OYSTER SHELL CALCIUM 500 MG TAB PO SCH ×2 (08:07→19:55)
[2019-06-06] MEDS: OMEPRAZOLE 20 MG CAP PO SCH ×2 (08:07→19:55)
[2019-06-06] MEDS: MULTIVITAMINS/MINERALS THERAP 1 TAB PO SCH (08:07)
[2019-06-06] MEDS: hydroCHLOROthiazide 12.5 MG CAPSULE PO SCH (08:07)
[2019-06-06] MEDS: PRAVASTATIN 20 MG TAB PO SCH (19:54)
[2019-06-06] MEDS: RAMELTEON 8 MG TAB (ROZEREM) PO PRN (19:54)
[2019-06-07] MEDS: LORazepam 1 MG TAB PO SCH ×4 (04:38→20:48)
[2019-06-07] MEDS: ACETAMINOPHEN 650MG ER TAB (TYLENOL ARTHRITIS) PO SCH ×3 (04:38→20:48)
[2019-06-07 06:00] VITALS: BP 128/70
[2019-06-07] MEDS: OYSTER SHELL CALCIUM 500 MG TAB PO SCH ×2 (08:56→20:48)
[2019-06-07] MEDS: MULTIVITAMINS/MINERALS THERAP 1 TAB PO SCH (08:56)
[2019-06-07] MEDS: OMEPRAZOLE 20 MG CAP PO SCH ×2 (08:56→20:48)
[2019-06-07] MEDS: DONEPEZIL 5 MG TAB PO SCH (08:56)
[2019-06-07] MEDS: LEVOTHYROXINE 112MCG TABLET (0.112MG) PO SCH (08:56)
[2019-06-07] MEDS: hydroCHLOROthiazide 12.5 MG CAPSULE PO SCH (08:57)
[2019-06-07] MEDS: QUINAPRIL 20 MG TAB PO SCH (08:57)
[2019-06-07] MEDS: PRAVASTATIN 20 MG TAB PO SCH (20:48)
[2019-06-08] MEDS: LORazepam 1 MG TAB PO SCH ×4 (02:41→20:08)
[2019-06-08] MEDS: ACETAMINOPHEN 650MG ER TAB (TYLENOL ARTHRITIS) PO SCH ×3 (05:53→20:32)
[2019-06-08 06:00] VITALS: BP 129/71
[2019-06-08] MEDS: OMEPRAZOLE 20 MG CAP PO SCH ×2 (09:03→20:08)
[2019-06-08] MEDS: DONEPEZIL 5 MG TAB PO SCH (09:03)
[2019-06-08] MEDS: LEVOTHYROXINE 112MCG TABLET (0.112MG) PO SCH (09:03)
[2019-06-08] MEDS: MULTIVITAMINS/MINERALS THERAP 1 TAB PO SCH (09:03)
[2019-06-08] MEDS: hydroCHLOROthiazide 12.5 MG CAPSULE PO SCH (09:03)
[2019-06-08] MEDS: QUINAPRIL 20 MG TAB PO SCH (09:04)
[2019-06-08] MEDS: OYSTER SHELL CALCIUM 500 MG TAB PO SCH ×2 (09:04→20:08)
[2019-06-08] MEDS: RAMELTEON 8 MG TAB (ROZEREM) PO PRN (20:08)
[2019-06-08] MEDS: PRAVASTATIN 20 MG TAB PO SCH (20:08)
[2019-06-08] MEDS: CALCIUM CARBONATE 500 MG CHEW U/D PO PRN (20:32)
[2019-06-09] MEDS: LORazepam 1 MG TAB PO SCH ×4 (03:00→19:57)
[2019-06-09] MEDS: ACETAMINOPHEN 650MG ER TAB (TYLENOL ARTHRITIS) PO SCH ×3 (05:33→19:58)
[2019-06-09 06:18] VITALS: BP 122/68
[2019-06-09] MEDS: MAALOX 30 ML SUSP *UDC PO PRN (08:12)
[2019-06-09] MEDS: LEVOTHYROXINE 112MCG TABLET (0.112MG) PO SCH (08:12)
[2019-06-09] MEDS: DONEPEZIL 5 MG TAB PO SCH (08:12)
[2019-06-09] MEDS: OMEPRAZOLE 20 MG CAP PO SCH ×2 (08:12→19:58)
[2019-06-09] MEDS: QUINAPRIL 20 MG TAB PO SCH (08:12)
[2019-06-09] MEDS: MULTIVITAMINS/MINERALS THERAP 1 TAB PO SCH (08:13)
[2019-06-09] MEDS: OYSTER SHELL CALCIUM 500 MG TAB PO SCH ×2 (08:13→19:57)
[2019-06-09] MEDS: hydroCHLOROthiazide 12.5 MG CAPSULE PO SCH (08:13)
[2019-06-09 14:00] VITALS: BP 117/84
[2019-06-09 15:26] LABS: BASO # 0.1 10^3/uL (0.0-0.2); BASO % 0.7 % (0.0-1.0); EOS # 0.2 10^3/uL (0.0-0.5); EOS % 2.7 % (0.0-3.0); HEMATOCRIT 41.9 % (36.0-47.0); HEMOGLOBIN 14.1 g/dl (12.0-15.5); LYMPH # 1.3 10^3/uL (1.5-5.0); LYMPH % 18.4 % (24.0-44.0); MEAN CORPUSCULAR HEMOGLOBIN 31.5 pg (27.0-33.0); MEAN CORPUSCULAR HGB CONC 33.7 g/dl (32.0-36.5); MEAN CORPUSCULAR VOLUME 93.5 fl (80.0-96.0); MONO # 0.7 10^3/uL (0.0-0.8); MONO % 9.3 % (0.0-5.0); NEUTROPHILS # 4.8 10^3/uL (1.5-8.5); NEUTROPHILS % 68.5 % (36.0-66.0); PLATELET COUNT, AUTOMATED 277 10^3/uL (150-450); RED BLOOD COUNT 4.48 10^6/uL (4.00-5.40)
[2019-06-09 15:58] LABS: ALBUMIN 3.7 GM/DL (3.2-5.2); ALT/SGPT 24 U/L (12-78); BILIRUBIN,TOTAL 0.4 MG/DL (0.2-1.0); BLOOD UREA NITROGEN 11 MG/DL (7-18); C REACTIVE PROTEIN QUANTITATIV 0.47 MG/DL (0.00-0.30); CALCIUM LEVEL 9.1 MG/DL (8.8-10.2); CARBON DIOXIDE LEVEL 34 MEQ/L (21-32); CHLORIDE LEVEL 103 MEQ/L (98-107); CREATININE FOR GFR 0.85 MG/DL (0.55-1.30); GLOMERULAR FILTRATION RATE > 60.0 (>39); GLUCOSE, FASTING 114 MG/DL (70-100); POTASSIUM SERUM 3.9 MEQ/L (3.5-5.1); SODIUM LEVEL 140 MEQ/L (136-145); TOTAL PROTEIN 6.9 GM/DL (6.4-8.2)
[2019-06-09 16:01] LABS: ERYTHROCYTE SEDIMENTATION RATE 37 mm/hr (0-30)
[2019-06-09] MEDS: CALCIUM CARBONATE 500 MG CHEW U/D PO PRN (19:58)
[2019-06-09] MEDS: PRAVASTATIN 20 MG TAB PO SCH (19:58)
[2019-06-09 20:06] VITALS: BP 124/76
[2019-06-10] MEDS: LORazepam 1 MG TAB PO SCH ×4 (02:17→20:54)
[2019-06-10] MEDS: ACETAMINOPHEN 650MG ER TAB (TYLENOL ARTHRITIS) PO SCH ×3 (05:58→20:54)
[2019-06-10 06:00] VITALS: BP 125/75
[2019-06-10] MEDS: OYSTER SHELL CALCIUM 500 MG TAB PO SCH ×2 (08:59→20:54)
[2019-06-10] MEDS: hydroCHLOROthiazide 12.5 MG CAPSULE PO SCH (08:59)
[2019-06-10] MEDS: MULTIVITAMINS/MINERALS THERAP 1 TAB PO SCH (08:59)
[2019-06-10] MEDS: OMEPRAZOLE 20 MG CAP PO SCH ×2 (08:59→20:54)
[2019-06-10] MEDS: QUINAPRIL 20 MG TAB PO SCH (09:00)
[2019-06-10] MEDS: LEVOTHYROXINE 112MCG TABLET (0.112MG) PO SCH (09:00)
[2019-06-10] MEDS: DONEPEZIL 5 MG TAB PO SCH (09:00)
--- NOTE | 2019-06-10 10:44 | IPN ---
DATE: 06/09/2019 Patient requires a sitter. Remains confused. Per sitter, patient had complained of some nausea this morning. No fever or chills. No diarrhea or abdominal pain. Denies dysuria, urgency, frequency, cough, fever, chills, shortness of breath, palpitations, lightheadedness, or dizziness. Temperature 98.3, pulse 60, respiratory rate 18, blood pressure 122/68, 97% on room air. Generally, patient is awake, alert, oriented to person only. Remains disoriented. Does not remember circumstances of her admission. Lungs are clear to auscultation. No wheezing, rales or rhonchi. Heart: S1, S2, sinus rhythm. Abdomen is soft, nontender, nondistended. Positive bowel sounds. Extremities: No cyanosis, clubbing or pitting edema. LABORATORY DATA: None available. ASSESSMENT AND PLAN: A 78-year-old female awaiting placement, presented with confusion on chronic dementia. Workup was negative. ACTIVE ISSUES ARE FOLLOWS: 1. Acute encephalopathy on chronic dementia. Workup has been negative for acute infectious process. Will check CMP today due to complaints of nausea. UA was unremarkable. CBC, metabolic panel and liver function tests were normal on admission. TSH was normal. CT of the head showed no acute intracranial abnormality but with chronic dementia with mild to moderate atrophy. Awaiting placement. [facility] CENTEREdouard
[2019-06-10] MEDS: RAMELTEON 8 MG TAB (ROZEREM) PO PRN (20:54)
[2019-06-10] MEDS: PRAVASTATIN 20 MG TAB PO SCH (20:54)
[2019-06-10] MEDS: QUEtiapine FUMARATE 12.5 MG HALF-TAB PO PRN (23:19)
[2019-06-11] MEDS: LORazepam 1 MG TAB PO SCH ×4 (03:00→20:50)
[2019-06-11 06:00] VITALS: BP 122/67
[2019-06-11] MEDS: ACETAMINOPHEN 650MG ER TAB (TYLENOL ARTHRITIS) PO SCH ×2 (06:00→12:19)
[2019-06-11] MEDS: OMEPRAZOLE 20 MG CAP PO SCH ×2 (08:23→20:50)
[2019-06-11] MEDS: DONEPEZIL 5 MG TAB PO SCH (08:24)
[2019-06-11] MEDS: LEVOTHYROXINE 112MCG TABLET (0.112MG) PO SCH (08:24)
[2019-06-11] MEDS: QUINAPRIL 20 MG TAB PO SCH (08:24)
[2019-06-11] MEDS: hydroCHLOROthiazide 12.5 MG CAPSULE PO SCH (08:24)
[2019-06-11] MEDS: MULTIVITAMINS/MINERALS THERAP 1 TAB PO SCH (08:24)
[2019-06-11] MEDS: OYSTER SHELL CALCIUM 500 MG TAB PO SCH ×2 (08:24→20:50)
[2019-06-11] MEDS: CALCIUM CARBONATE 500 MG CHEW U/D PO PRN (12:23)
[2019-06-11] MEDS: MAALOX 30 ML SUSP *UDC PO PRN (14:58)
[2019-06-11] MEDS: RAMELTEON 8 MG TAB (ROZEREM) PO PRN (20:49)
[2019-06-11] MEDS: PRAVASTATIN 20 MG TAB PO SCH (20:50)
[2019-06-12] MEDS: LORazepam 1 MG TAB PO SCH ×4 (02:35→19:35)
[2019-06-12 06:38] VITALS: BP 134/69
[2019-06-12] MEDS: hydroCHLOROthiazide 12.5 MG CAPSULE PO SCH (07:58)
[2019-06-12] MEDS: QUINAPRIL 20 MG TAB PO SCH (07:59)
[2019-06-12] MEDS: DONEPEZIL 5 MG TAB PO SCH (07:59)
[2019-06-12] MEDS: ACETAMINOPHEN 650MG ER TAB (TYLENOL ARTHRITIS) PO SCH ×2 (07:59→19:35)
[2019-06-12] MEDS: OMEPRAZOLE 20 MG CAP PO SCH ×2 (08:00→19:36)
[2019-06-12] MEDS: OYSTER SHELL CALCIUM 500 MG TAB PO SCH ×2 (08:00→19:36)
[2019-06-12] MEDS: LEVOTHYROXINE 112MCG TABLET (0.112MG) PO SCH (08:00)
[2019-06-12] MEDS: MULTIVITAMINS/MINERALS THERAP 1 TAB PO SCH (08:00)
[2019-06-12 09:35] LABS: HEMATOCRIT 38.4 % (36.0-47.0); HEMOGLOBIN 13.1 g/dl (12.0-15.5); MEAN CORPUSCULAR HGB CONC 34.1 g/dl (32.0-36.5); MEAN CORPUSCULAR VOLUME 93.9 fl (80.0-96.0); PLATELET COUNT, AUTOMATED 241 10^3/uL (150-450); RED BLOOD COUNT 4.09 10^6/uL (4.00-5.40); WHITE BLOOD COUNT 6.6 10^3/uL (4.0-10.0)
[2019-06-12 10:01] LABS: BLOOD UREA NITROGEN 12 MG/DL (7-18); CALCIUM LEVEL 8.9 MG/DL (8.8-10.2); CARBON DIOXIDE LEVEL 33 MEQ/L (21-32); CHLORIDE LEVEL 104 MEQ/L (98-107); CREATININE FOR GFR 0.86 MG/DL (0.55-1.30); GLOMERULAR FILTRATION RATE > 60.0 (>39); GLUCOSE, FASTING 107 MG/DL (70-100); SODIUM LEVEL 143 MEQ/L (136-145)
[2019-06-12] MEDS ORDERED: IBUPROFEN 400 MG TAB PO ONE (15:00)
[2019-06-12] MEDS: RAMELTEON 8 MG TAB (ROZEREM) PO PRN (19:35)
[2019-06-12] MEDS: PRAVASTATIN 20 MG TAB PO SCH (19:36)
[2019-06-13] MEDS: LORazepam 1 MG TAB PO SCH ×2 (02:54→09:09)
[2019-06-13 06:00] VITALS: BP 129/69
[2019-06-13] MEDS: MULTIVITAMINS/MINERALS THERAP 1 TAB PO SCH (09:09)
[2019-06-13] MEDS: ACETAMINOPHEN 650MG ER TAB (TYLENOL ARTHRITIS) PO SCH ×2 (09:09→19:52)
[2019-06-13] MEDS: DONEPEZIL 5 MG TAB PO SCH (09:09)
[2019-06-13] MEDS: QUINAPRIL 20 MG TAB PO SCH (09:09)
[2019-06-13] MEDS: hydroCHLOROthiazide 12.5 MG CAPSULE PO SCH (09:09)
[2019-06-13] MEDS: OYSTER SHELL CALCIUM 500 MG TAB PO SCH ×2 (09:09→19:52)
[2019-06-13] MEDS: LEVOTHYROXINE 112MCG TABLET (0.112MG) PO SCH (09:09)
[2019-06-13] MEDS: OMEPRAZOLE 20 MG CAP PO SCH ×2 (09:10→19:53)
[2019-06-13] MEDS: QUEtiapine FUMARATE 50 MG TAB PO SCH (19:52)
[2019-06-13] MEDS: PRAVASTATIN 20 MG TAB PO SCH (19:52)
[2019-06-14 06:00] VITALS: BP 125/67
[2019-06-14] MEDS: OYSTER SHELL CALCIUM 500 MG TAB PO SCH ×2 (09:16→20:13)
[2019-06-14] MEDS: hydroCHLOROthiazide 12.5 MG CAPSULE PO SCH (09:16)
[2019-06-14] MEDS: DONEPEZIL 5 MG TAB PO SCH (09:17)
[2019-06-14] MEDS: QUINAPRIL 20 MG TAB PO SCH (09:17)
[2019-06-14] MEDS: LEVOTHYROXINE 112MCG TABLET (0.112MG) PO SCH (09:18)
[2019-06-14] MEDS: OMEPRAZOLE 20 MG CAP PO SCH ×2 (09:18→20:13)
[2019-06-14] MEDS: MULTIVITAMINS/MINERALS THERAP 1 TAB PO SCH (09:18)
[2019-06-14] MEDS: ACETAMINOPHEN 650MG ER TAB (TYLENOL ARTHRITIS) PO SCH ×2 (09:18→20:13)
[2019-06-14] MEDS: QUEtiapine FUMARATE 25 MG TAB PO SCH (12:42)
--- NOTE | 2019-06-14 13:27 | CR ---
DATE OF CONSULTATION: 06/13/2019 TELEMEDICINE VIDEO ASSESSMENT (This is being done because of the virus pandemic). CHIEF COMPLAINT: Says feels good. SUBJECTIVE: She is 78 years old. She is . I am unsure of the rest of the social history, as she has a hard time narrating any history, she has considerable cognitive deficits in terms of her memory. I have been asked to see her to make an assessment regarding her capacity to make decisions regarding her care, I understand there are some concerns regarding guardianship. The chart is reviewed. The patient is interviewed. The interview is rather limited, as she has a hard time giving a history. She is 78 years old, was until recently living with her , who is now apparently placed in a hospice house, this is just a couple of days prior to her being admitted here. She was admitted to the hospital about a month ago, almost. She had apparently called 911 as she could not find her . She was brought to the hospital, was found to be confused, did not have any food or toiletries at home. She says she has been doing well, but is unable to elaborate. 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 She says lives with her , suggests lives in [place], I am not sure if that is accurate, and that they were visiting people in [place]. Says has a sister in the area, then later suggests that she herself was living [place] in the past. She does not remember if she slept well, or if she has had lunch, but says she has had dessert, she had a cupcake. PAST PSYCHIATRIC HISTORY: I am not aware of any psychiatric care, or interventions in the past, she has been diagnosed with dementia, which quite distinctly impacts her ability to function. She is on donepezil 10 mg daily. MEDICAL HISTORY: She has a history of chronic hypertension, exercise induced asthma, hypothyroidism, history of transitional cell carcinoma of the bladder, status post resection, gastroesophageal reflux disease, dyslipidemia. SUBSTANCE ABUSE HISTORY: Unknown. SOCIAL HISTORY: Previously lived with her , who was taken to hospice a couple of days before the patient came to the hospital. 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 INVESTIGATIONS: Including CT imaging, showed scattered foci, white matter hypodensity, mild to moderate atrophy, and she is thought to have small vessel ischemic disease. MENTAL STATUS EXAMINATION: She is neat. She is cooperative. She displays no agitation. No psychomotor retardation. Slight latency of response. Answers questions briefly, logically, but is unable to narrate much, due to her cognitive deficits. She is unable to indicate how she came to the hospital or why. No evidence of any active thoughts of harming herself or anyone else. Does not appear internally preoccupied. No fluctuation of consciousness. She is alert, oriented to place and person, but not to time. Short term recall is impaired, as is residential recall. Judgment and insight are poor. ASSESSMENT: Major neurocognitive disorder, most likely vascular. Deteriorating memory and ability to cater for herself. in hospice. Limited social support, none that I am aware of. The patient has considerable cognitive difficulties and dementia. She is unable to narrate a history of her present or recent state. This considerable difficulty distinctly interferes with her ability to make decisions regarding her care. She does not have the capacity to do so. RECOMMENDATIONS: I would suggest proceeding with suitable placement. Thank you for the consult. If there are questions, please call.
[2019-06-14] MEDS: CALCIUM CARBONATE 500 MG CHEW U/D PO PRN (14:33)
--- NOTE | 2019-06-14 17:43 | REP ---
PORTABLE CHEST X-RAY: SITTING AP VIEW. HISTORY: Chest pain. COMPARISON STUDY: May 15, 2019 FINDINGS: The lungs are symmetrically aerated and clear. The pleural angles are sharp. Heart is not enlarged. The thoracic aorta is calcific and tortuous as before. There is a levoconvex curvature and degenerative spondylosis changes in the thoracic spine. There is asymmetry of the posterior thoracic ribs on the left which is unchanged. This may be old post-traumatic change. Pulmonary vasculature is not increased. IMPRESSION: No active cardiopulmonary disease. Electronically Signed by Dhruv Urbina MD 06/14/2019 05:56 P
[2019-06-14] MEDS: RAMELTEON 8 MG TAB (ROZEREM) PO PRN (20:12)
[2019-06-14] MEDS: PRAVASTATIN 20 MG TAB PO SCH (20:13)
[2019-06-14] MEDS: QUEtiapine FUMARATE 50 MG TAB PO SCH (20:13)
[2019-06-15 06:00] VITALS: BP 133/80
[2019-06-15] MEDS: DONEPEZIL 5 MG TAB PO SCH (07:52)
[2019-06-15] MEDS: ACETAMINOPHEN 650MG ER TAB (TYLENOL ARTHRITIS) PO SCH ×2 (07:53→19:58)
[2019-06-15] MEDS: LEVOTHYROXINE 112MCG TABLET (0.112MG) PO SCH (07:53)
[2019-06-15] MEDS: OMEPRAZOLE 20 MG CAP PO SCH ×2 (07:53→19:58)
[2019-06-15] MEDS: QUEtiapine FUMARATE 25 MG TAB PO SCH (07:53)
[2019-06-15] MEDS: haloperidoL 1 MG TAB PO PRN ×2 (07:54→19:58)
[2019-06-15] MEDS: OYSTER SHELL CALCIUM 500 MG TAB PO SCH ×2 (07:54→19:58)
[2019-06-15] MEDS: MULTIVITAMINS/MINERALS THERAP 1 TAB PO SCH (07:54)
[2019-06-15] MEDS: QUINAPRIL 20 MG TAB PO SCH (07:54)
[2019-06-15] MEDS: hydroCHLOROthiazide 12.5 MG CAPSULE PO SCH (07:54)
[2019-06-15 14:00] VITALS: BP 119/52
[2019-06-15] MEDS: RAMELTEON 8 MG TAB (ROZEREM) PO PRN (19:58)
[2019-06-15] MEDS: PRAVASTATIN 20 MG TAB PO SCH (19:58)
[2019-06-15] MEDS: QUEtiapine FUMARATE 50 MG TAB PO SCH (19:58)
--- NOTE | 2019-06-15 20:57 | ECGEPIP ---
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 Heart rate then was 55 bpm otherwise unremarkable Electronically Signed on 06-15-2019 20:56:45 EDT by Mk Garza
[2019-06-16 06:35] VITALS: BP 116/56
[2019-06-16] MEDS: QUINAPRIL 20 MG TAB PO SCH (09:13)
[2019-06-16] MEDS: DONEPEZIL 5 MG TAB PO SCH (09:13)
[2019-06-16] MEDS: ACETAMINOPHEN 650MG ER TAB (TYLENOL ARTHRITIS) PO SCH ×2 (09:14→19:53)
[2019-06-16] MEDS: hydroCHLOROthiazide 12.5 MG CAPSULE PO SCH (09:14)
[2019-06-16] MEDS: MULTIVITAMINS/MINERALS THERAP 1 TAB PO SCH (09:14)
[2019-06-16] MEDS: QUEtiapine FUMARATE 25 MG TAB PO SCH (09:14)
[2019-06-16] MEDS: OMEPRAZOLE 20 MG CAP PO SCH ×2 (09:14→19:53)
[2019-06-16] MEDS: LEVOTHYROXINE 112MCG TABLET (0.112MG) PO SCH (09:14)
[2019-06-16] MEDS: OYSTER SHELL CALCIUM 500 MG TAB PO SCH ×2 (09:14→19:53)
[2019-06-16] MEDS: QUEtiapine FUMARATE 50 MG TAB PO SCH (19:53)
[2019-06-16] MEDS: PRAVASTATIN 20 MG TAB PO SCH (19:53)
[2019-06-17 06:30] VITALS: BP 120/65
[2019-06-17] MEDS: OMEPRAZOLE 20 MG CAP PO SCH ×2 (08:23→21:16)
[2019-06-17] MEDS: QUINAPRIL 20 MG TAB PO SCH (08:24)
[2019-06-17] MEDS: QUEtiapine FUMARATE 25 MG TAB PO SCH (08:24)
[2019-06-17] MEDS: MULTIVITAMINS/MINERALS THERAP 1 TAB PO SCH (08:24)
[2019-06-17] MEDS: LEVOTHYROXINE 112MCG TABLET (0.112MG) PO SCH (08:24)
[2019-06-17] MEDS: DONEPEZIL 5 MG TAB PO SCH (08:24)
[2019-06-17] MEDS: hydroCHLOROthiazide 12.5 MG CAPSULE PO SCH (08:24)
[2019-06-17] MEDS: OYSTER SHELL CALCIUM 500 MG TAB PO SCH ×2 (08:24→21:16)
[2019-06-17] MEDS: ACETAMINOPHEN 650MG ER TAB (TYLENOL ARTHRITIS) PO SCH ×2 (08:25→21:16)
[2019-06-17] MEDS: haloperidoL 1 MG TAB PO PRN (11:02)
[2019-06-17 13:22] LABS: BASO % 0.6 % (0.0-1.0); EOS # 0.2 10^3/uL (0.0-0.5); EOS % 3.2 % (0.0-3.0); HEMATOCRIT 38.1 % (36.0-47.0); HEMOGLOBIN 12.9 g/dl (12.0-15.5); LYMPH # 1.2 10^3/uL (1.5-5.0); LYMPH % 18.6 % (24.0-44.0); MEAN CORPUSCULAR HEMOGLOBIN 32.7 pg (27.0-33.0); MEAN CORPUSCULAR HGB CONC 33.9 g/dl (32.0-36.5); MEAN CORPUSCULAR VOLUME 96.7 fl (80.0-96.0); MONO # 0.5 10^3/uL (0.0-0.8); MONO % 7.1 % (0.0-5.0); NEUTROPHILS # 4.7 10^3/uL (1.5-8.5); NEUTROPHILS % 70.2 % (36.0-66.0); PLATELET COUNT, AUTOMATED 212 10^3/uL (150-450); RED BLOOD COUNT 3.94 10^6/uL (4.00-5.40); WHITE BLOOD COUNT 6.7 10^3/uL (4.0-10.0)
--- NOTE | 2019-06-17 13:26 | IPNPDOC ---
Text Note Date of Service The patient was seen on 06/17/19. 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 Patient was admitted to hospital service for further evaluation and treatment and reversible causes of encephalopathy were ruled out. Patient was seen and examined at the bedside. Patient reported some nausea. She denied any vomiting. Denies chest pain, shortness breath or palpitations. Reported some abdominal discomfort but no pain. Denies any urinary discomfort or diarrhea. Objective: Vitals (See below) General: Lying in bed, complaining of nausea, Awake / Alert HEENT: NC, AT CVS: +S1S2 Lungs: Fair air entry b/l, no appreciable wheezing / rhonchi / rales Abdomen: Soft, ND, no significant tenderness on palpation Extremities: - Edema, - Calf tenderness Assessment and plan: Acute encephalopathy on chronic dementia. - No evidence of infectious etiology - Will repeat lab work - CT head 05/14: 1. No acute intracranial hemorrhage or acute territorial type infarct. 2. There are scattered foci of white matter hypodensity, likely representing small vessel ischemic disease in a patient this age. 3. Mild to moderate atrophy. This has slightly progressed. - c/w Donepezil - Awaiting placement / in process of establishing Guardianship - Psychiatry on consultation Delirium - Patient experiences episodes of sundowning - Will DC Haldol - c/w Ramelteon PRN insomnia - Will c/w Seroquel at adjusted dose - Bedside sitter present - Psychiatry on consultation Nausea - Will check CBC, CMP, Mg - Will give single dose of Zofran HTN - BP well controlled - c/w Quinapril and HCTZ DLP - c/w Pravastatin Hypothyroidism - c/w Levothyroxine GERD - c/w Omeprazole DVT prophylaxis - c/w TEDs/Sequentials - Patient continues to ambulate daily Disposition: - Awaiting guardianship - Will need manager resource placement VS,Fishbone, I+O VS, Fishbone, I+O Vital Signs Date Time Temp Pulse Resp B/P (MAP) Pulse Ox O2 Delivery O2 Flow Rate FiO2 06/17/19 08:24 120/65 06/17/19 06:30 97.0 60 20 98 Room Air I&O- Last 24 Hours up to 6 AM 06/17/19 06:00 Intake Total 700 ml Output Total 0 ml Balance 700 ml CHERRI SINGER MD June 17, 2019 13:26
[2019-06-17] MEDS ORDERED: ONDANSETRON 4 MG TAB PO ONE (13:30)
[2019-06-17 13:41] LABS: ALBUMIN 3.4 GM/DL (3.2-5.2); ALT/SGPT 22 U/L (12-78); BILIRUBIN,DIRECT < 0.1 MG/DL (0.0-0.2); BILIRUBIN,TOTAL 0.3 MG/DL (0.2-1.0); BLOOD UREA NITROGEN 16 MG/DL (7-18); CALCIUM LEVEL 8.6 MG/DL (8.8-10.2); CARBON DIOXIDE LEVEL 33 MEQ/L (21-32); CHLORIDE LEVEL 105 MEQ/L (98-107); CREATININE FOR GFR 0.94 MG/DL (0.55-1.30); GLOMERULAR FILTRATION RATE > 60.0 (>39); GLUCOSE, FASTING 174 MG/DL (70-100); MAGNESIUM LEVEL 2.1 MG/DL (1.8-2.4); POTASSIUM SERUM 3.6 MEQ/L (3.5-5.1); SODIUM LEVEL 142 MEQ/L (136-145); TOTAL PROTEIN 6.5 GM/DL (6.4-8.2)
[2019-06-17] MEDS: RAMELTEON 8 MG TAB (ROZEREM) PO PRN (21:16)
[2019-06-17] MEDS: QUEtiapine FUMARATE 50 MG TAB PO SCH (21:16)
[2019-06-17] MEDS: PRAVASTATIN 20 MG TAB PO SCH (21:16)
[2019-06-18 06:00] VITALS: BP 132/65
[2019-06-18] MEDS: hydroCHLOROthiazide 12.5 MG CAPSULE PO SCH (08:30)
[2019-06-18] MEDS: QUEtiapine FUMARATE 25 MG TAB PO SCH (08:30)
[2019-06-18] MEDS: LEVOTHYROXINE 112MCG TABLET (0.112MG) PO SCH (08:30)
[2019-06-18] MEDS: ACETAMINOPHEN 650MG ER TAB (TYLENOL ARTHRITIS) PO SCH ×2 (08:30→21:20)
[2019-06-18] MEDS: MULTIVITAMINS/MINERALS THERAP 1 TAB PO SCH (08:30)
[2019-06-18] MEDS: OMEPRAZOLE 20 MG CAP PO SCH ×2 (08:30→21:20)
[2019-06-18] MEDS: DONEPEZIL 5 MG TAB PO SCH (08:31)
[2019-06-18] MEDS: OYSTER SHELL CALCIUM 500 MG TAB PO SCH ×2 (08:31→21:20)
[2019-06-18] MEDS: QUINAPRIL 20 MG TAB PO SCH (08:32)
[2019-06-18 09:00] VITALS: BP 122/58
[2019-06-18] MEDS: CALCIUM CARBONATE 500 MG CHEW U/D PO PRN (13:51)
[2019-06-18] MEDS: MAALOX 30 ML SUSP *UDC PO PRN (13:51)
[2019-06-18] MEDS: RAMELTEON 8 MG TAB (ROZEREM) PO PRN (21:20)
[2019-06-18] MEDS: PRAVASTATIN 20 MG TAB PO SCH (21:20)
[2019-06-18] MEDS: QUEtiapine FUMARATE 50 MG TAB PO SCH (21:20)
[2019-06-19 06:00] VITALS: BP 128/59
[2019-06-19] MEDS: QUEtiapine FUMARATE 25 MG TAB PO SCH (08:08)
[2019-06-19] MEDS: MULTIVITAMINS/MINERALS THERAP 1 TAB PO SCH (08:08)
[2019-06-19] MEDS: OYSTER SHELL CALCIUM 500 MG TAB PO SCH ×2 (08:08→21:50)
[2019-06-19] MEDS: LEVOTHYROXINE 112MCG TABLET (0.112MG) PO SCH (08:08)
[2019-06-19] MEDS: OMEPRAZOLE 20 MG CAP PO SCH ×2 (08:08→21:50)
[2019-06-19] MEDS: DONEPEZIL 5 MG TAB PO SCH (08:09)
[2019-06-19] MEDS: hydroCHLOROthiazide 12.5 MG CAPSULE PO SCH (08:09)
[2019-06-19] MEDS: QUINAPRIL 20 MG TAB PO SCH (08:09)
[2019-06-19] MEDS: ACETAMINOPHEN 650MG ER TAB (TYLENOL ARTHRITIS) PO SCH ×2 (08:09→21:50)
[2019-06-19 10:03] LABS: HEMATOCRIT 36.8 % (36.0-47.0); HEMOGLOBIN 12.4 g/dl (12.0-15.5); MEAN CORPUSCULAR HEMOGLOBIN 32.1 pg (27.0-33.0); MEAN CORPUSCULAR HGB CONC 33.7 g/dl (32.0-36.5); MEAN CORPUSCULAR VOLUME 95.3 fl (80.0-96.0); PLATELET COUNT, AUTOMATED 201 10^3/uL (150-450); RED BLOOD COUNT 3.86 10^6/uL (4.00-5.40); WHITE BLOOD COUNT 5.6 10^3/uL (4.0-10.0)
[2019-06-19 10:22] LABS: BLOOD UREA NITROGEN 13 MG/DL (7-18); CALCIUM LEVEL 8.9 MG/DL (8.8-10.2); CARBON DIOXIDE LEVEL 32 MEQ/L (21-32); CHLORIDE LEVEL 106 MEQ/L (98-107); GLOMERULAR FILTRATION RATE > 60.0 (>39); GLUCOSE, FASTING 126 MG/DL (70-100); POTASSIUM SERUM 3.7 MEQ/L (3.5-5.1); SODIUM LEVEL 142 MEQ/L (136-145)
[2019-06-19] MEDS: RAMELTEON 8 MG TAB (ROZEREM) PO PRN (21:50)
[2019-06-19] MEDS: QUEtiapine FUMARATE 50 MG TAB PO SCH (21:50)
[2019-06-19] MEDS: PRAVASTATIN 20 MG TAB PO SCH (21:50)
[2019-06-20 06:18] VITALS: BP 137/73
[2019-06-20] MEDS: ACETAMINOPHEN 650MG ER TAB (TYLENOL ARTHRITIS) PO SCH ×2 (08:23→21:47)
[2019-06-20] MEDS: QUINAPRIL 20 MG TAB PO SCH (08:23)
[2019-06-20] MEDS: DONEPEZIL 5 MG TAB PO SCH (08:23)
[2019-06-20] MEDS: LEVOTHYROXINE 112MCG TABLET (0.112MG) PO SCH (08:23)
[2019-06-20] MEDS: hydroCHLOROthiazide 12.5 MG CAPSULE PO SCH (08:24)
[2019-06-20] MEDS: QUEtiapine FUMARATE 25 MG TAB PO SCH (08:24)
[2019-06-20] MEDS: OYSTER SHELL CALCIUM 500 MG TAB PO SCH ×2 (08:24→21:48)
[2019-06-20] MEDS: MULTIVITAMINS/MINERALS THERAP 1 TAB PO SCH (08:24)
[2019-06-20] MEDS: OMEPRAZOLE 20 MG CAP PO SCH ×2 (08:24→21:48)
[2019-06-20] MEDS ORDERED: GI COCKTAIL 50ML BTL(HYOSCYAMINE/MAALOX/LIDOCAINE VISCOUS)(1:3:1) PO ONE (19:00)
--- NOTE | 2019-06-20 19:22 | ECGEPIP ---
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
[2019-06-20] MEDS: PRAVASTATIN 20 MG TAB PO SCH (21:48)
[2019-06-20] MEDS: QUEtiapine FUMARATE 50 MG TAB PO SCH (21:48)
[2019-06-20] MEDS: RAMELTEON 8 MG TAB (ROZEREM) PO PRN (21:48)
[2019-06-21 06:00] VITALS: BP 129/59
[2019-06-21] MEDS: OMEPRAZOLE 20 MG CAP PO SCH ×2 (08:42→20:15)
[2019-06-21] MEDS: hydroCHLOROthiazide 12.5 MG CAPSULE PO SCH (08:42)
[2019-06-21] MEDS: OYSTER SHELL CALCIUM 500 MG TAB PO SCH ×2 (08:42→20:14)
[2019-06-21] MEDS: QUEtiapine FUMARATE 25 MG TAB PO SCH (08:42)
[2019-06-21] MEDS: DONEPEZIL 5 MG TAB PO SCH (08:43)
[2019-06-21] MEDS: QUINAPRIL 20 MG TAB PO SCH (08:43)
[2019-06-21] MEDS: MULTIVITAMINS/MINERALS THERAP 1 TAB PO SCH (08:44)
[2019-06-21] MEDS: LEVOTHYROXINE 112MCG TABLET (0.112MG) PO SCH (08:44)
[2019-06-21] MEDS: ACETAMINOPHEN 650MG ER TAB (TYLENOL ARTHRITIS) PO SCH ×2 (08:44→20:15)
[2019-06-21] MEDS: MIRALAX *UNIT DOSE* 17GM PACKET PO PRN (13:18)
[2019-06-21] MEDS: QUEtiapine FUMARATE 50 MG TAB PO SCH (20:14)
[2019-06-21] MEDS: RAMELTEON 8 MG TAB (ROZEREM) PO PRN (20:15)
[2019-06-21] MEDS: PRAVASTATIN 20 MG TAB PO SCH (20:15)
[2019-06-21 22:00] VITALS: BP 140/66
[2019-06-22 06:00] VITALS: BP 129/74
[2019-06-22] MEDS: QUEtiapine FUMARATE 25 MG TAB PO SCH (10:08)
[2019-06-22] MEDS: hydroCHLOROthiazide 12.5 MG CAPSULE PO SCH (10:08)
[2019-06-22] MEDS: OMEPRAZOLE 20 MG CAP PO SCH ×2 (10:08→19:52)
[2019-06-22] MEDS: OYSTER SHELL CALCIUM 500 MG TAB PO SCH ×2 (10:08→19:52)
[2019-06-22] MEDS: ACETAMINOPHEN 650MG ER TAB (TYLENOL ARTHRITIS) PO SCH ×2 (10:09→19:52)
[2019-06-22] MEDS: DONEPEZIL 5 MG TAB PO SCH (10:09)
[2019-06-22] MEDS: MULTIVITAMINS/MINERALS THERAP 1 TAB PO SCH (10:10)
[2019-06-22] MEDS: QUINAPRIL 20 MG TAB PO SCH (10:11)
[2019-06-22] MEDS: LEVOTHYROXINE 112MCG TABLET (0.112MG) PO SCH (10:14)
[2019-06-22 14:00] VITALS: BP 116/56
[2019-06-22 14:33] LABS: BASO % 0.5 % (0.0-1.0); EOS # 0.2 10^3/uL (0.0-0.5); EOS % 3.4 % (0.0-3.0); HEMATOCRIT 39.6 % (36.0-47.0); HEMOGLOBIN 13.4 g/dl (12.0-15.5); LYMPH # 1.6 10^3/uL (1.5-5.0); LYMPH % 27.3 % (24.0-44.0); MEAN CORPUSCULAR HEMOGLOBIN 32.4 pg (27.0-33.0); MEAN CORPUSCULAR HGB CONC 33.8 g/dl (32.0-36.5); MEAN CORPUSCULAR VOLUME 95.9 fl (80.0-96.0); MONO # 0.5 10^3/uL (0.0-0.8); MONO % 9.3 % (0.0-5.0); NEUTROPHILS # 3.4 10^3/uL (1.5-8.5); NEUTROPHILS % 59.2 % (36.0-66.0); PLATELET COUNT, AUTOMATED 196 10^3/uL (150-450); RED BLOOD COUNT 4.13 10^6/uL (4.00-5.40); WHITE BLOOD COUNT 5.8 10^3/uL (4.0-10.0)
[2019-06-22 15:03] LABS: BLOOD UREA NITROGEN 15 MG/DL (7-18); CALCIUM LEVEL 9.1 MG/DL (8.8-10.2); CARBON DIOXIDE LEVEL 35 MEQ/L (21-32); CHLORIDE LEVEL 107 MEQ/L (98-107); CREATININE FOR GFR 0.84 MG/DL (0.55-1.30); GLOMERULAR FILTRATION RATE > 60.0 (>39); GLUCOSE, FASTING 84 MG/DL (70-100); MAGNESIUM LEVEL 2.3 MG/DL (1.8-2.4); POTASSIUM SERUM 3.8 MEQ/L (3.5-5.1); SODIUM LEVEL 145 MEQ/L (136-145)
--- NOTE | 2019-06-22 18:19 | ECGEPIP ---
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
[2019-06-22] MEDS: PRAVASTATIN 20 MG TAB PO SCH (19:52)
[2019-06-23] MEDS: RAMELTEON 8 MG TAB (ROZEREM) PO PRN ×2 (01:14→19:39)
[2019-06-23 06:18] VITALS: BP 131/62
[2019-06-23] MEDS: QUINAPRIL 20 MG TAB PO SCH (08:37)
[2019-06-23] MEDS: OMEPRAZOLE 20 MG CAP PO SCH ×2 (08:38→19:40)
[2019-06-23] MEDS: MULTIVITAMINS/MINERALS THERAP 1 TAB PO SCH (08:38)
[2019-06-23] MEDS: ACETAMINOPHEN 650MG ER TAB (TYLENOL ARTHRITIS) PO SCH ×2 (08:38→19:40)
[2019-06-23] MEDS: hydroCHLOROthiazide 12.5 MG CAPSULE PO SCH (08:38)
[2019-06-23] MEDS: LEVOTHYROXINE 112MCG TABLET (0.112MG) PO SCH (08:38)
[2019-06-23] MEDS: OYSTER SHELL CALCIUM 500 MG TAB PO SCH ×2 (08:38→19:40)
[2019-06-23 09:00] VITALS: BP 126/64
[2019-06-23] MEDS: MIRALAX *UNIT DOSE* 17GM PACKET PO PRN (12:33)
[2019-06-23] MEDS: QUEtiapine FUMARATE 12.5 MG HALF-TAB PO SCH ×2 (12:33→19:39)
[2019-06-23] MEDS ORDERED: LORazepam 2 MG/ML VIAL IV PRN (14:45)
[2019-06-23] MEDS ORDERED: LORazepam 2 MG/ML VIAL IM STA (14:55)
[2019-06-23] MEDS ORDERED: QUEtiapine FUMARATE 25 MG TAB PO ONE (16:00)
[2019-06-23] MEDS: PRAVASTATIN 20 MG TAB PO SCH (19:40)
[2019-06-23] MEDS: SERTRALINE HCL 25 MG TABLET PO SCH (19:40)
[2019-06-24 06:00] VITALS: BP 126/68
[2019-06-24] MEDS: QUEtiapine FUMARATE 12.5 MG HALF-TAB PO SCH ×2 (08:27→19:50)
[2019-06-24] MEDS: OMEPRAZOLE 20 MG CAP PO SCH ×2 (08:27→19:50)
[2019-06-24] MEDS: hydroCHLOROthiazide 12.5 MG CAPSULE PO SCH (08:27)
[2019-06-24] MEDS: OYSTER SHELL CALCIUM 500 MG TAB PO SCH ×2 (08:27→19:50)
[2019-06-24] MEDS: LEVOTHYROXINE 112MCG TABLET (0.112MG) PO SCH (08:28)
[2019-06-24] MEDS: QUINAPRIL 20 MG TAB PO SCH (08:28)
[2019-06-24] MEDS: ACETAMINOPHEN 650MG ER TAB (TYLENOL ARTHRITIS) PO SCH ×2 (08:28→19:49)
[2019-06-24] MEDS: MULTIVITAMINS/MINERALS THERAP 1 TAB PO SCH (08:29)
[2019-06-24] MEDS: MAALOX 30 ML SUSP *UDC PO PRN (11:04)
[2019-06-24] MEDS ORDERED: traMADol 50 MG TAB PO ONE (12:00)
[2019-06-24] MEDS: SERTRALINE HCL 25 MG TABLET PO SCH (19:50)
[2019-06-24] MEDS: PRAVASTATIN 20 MG TAB PO SCH (19:50)
[2019-06-24] MEDS: RAMELTEON 8 MG TAB (ROZEREM) PO PRN (19:50)
[2019-06-25 06:00] VITALS: BP 130/62
[2019-06-25] MEDS: OYSTER SHELL CALCIUM 500 MG TAB PO SCH ×2 (08:15→19:38)
[2019-06-25] MEDS: QUEtiapine FUMARATE 12.5 MG HALF-TAB PO SCH ×2 (08:15→19:37)
[2019-06-25] MEDS: hydroCHLOROthiazide 12.5 MG CAPSULE PO SCH (08:15)
[2019-06-25] MEDS: QUINAPRIL 20 MG TAB PO SCH (08:15)
[2019-06-25] MEDS: MULTIVITAMINS/MINERALS THERAP 1 TAB PO SCH (08:15)
[2019-06-25] MEDS: ACETAMINOPHEN 650MG ER TAB (TYLENOL ARTHRITIS) PO SCH ×2 (08:15→19:39)
[2019-06-25] MEDS: OMEPRAZOLE 20 MG CAP PO SCH ×2 (08:15→19:39)
[2019-06-25] MEDS: LEVOTHYROXINE 112MCG TABLET (0.112MG) PO SCH (08:15)
[2019-06-25] MEDS: RAMELTEON 8 MG TAB (ROZEREM) PO PRN (19:37)
[2019-06-25] MEDS: PRAVASTATIN 20 MG TAB PO SCH (19:38)
[2019-06-25] MEDS: SERTRALINE HCL 25 MG TABLET PO SCH (19:38)
[2019-06-26 06:00] VITALS: BP 129/66
[2019-06-26] MEDS: LEVOTHYROXINE 112MCG TABLET (0.112MG) PO SCH (07:30)
[2019-06-26] MEDS: QUINAPRIL 20 MG TAB PO SCH (07:31)
[2019-06-26] MEDS: ACETAMINOPHEN 650MG ER TAB (TYLENOL ARTHRITIS) PO SCH ×2 (07:31→20:04)
[2019-06-26] MEDS: OMEPRAZOLE 20 MG CAP PO SCH ×2 (07:31→20:05)
[2019-06-26] MEDS: hydroCHLOROthiazide 12.5 MG CAPSULE PO SCH (07:31)
[2019-06-26] MEDS: MULTIVITAMINS/MINERALS THERAP 1 TAB PO SCH (07:31)
[2019-06-26] MEDS: QUEtiapine FUMARATE 12.5 MG HALF-TAB PO SCH ×2 (07:32→20:05)
[2019-06-26] MEDS: OYSTER SHELL CALCIUM 500 MG TAB PO SCH ×2 (07:32→20:05)
[2019-06-26 11:17] LABS: HEMATOCRIT 36.8 % (36.0-47.0); HEMOGLOBIN 12.5 g/dl (12.0-15.5); MEAN CORPUSCULAR HEMOGLOBIN 32.3 pg (27.0-33.0); MEAN CORPUSCULAR VOLUME 95.1 fl (80.0-96.0); PLATELET COUNT, AUTOMATED 196 10^3/uL (150-450); RED BLOOD COUNT 3.87 10^6/uL (4.00-5.40); WHITE BLOOD COUNT 6.5 10^3/uL (4.0-10.0)
[2019-06-26 12:03] LABS: BLOOD UREA NITROGEN 13 MG/DL (7-18); CARBON DIOXIDE LEVEL 31 MEQ/L (21-32); CHLORIDE LEVEL 105 MEQ/L (98-107); GLOMERULAR FILTRATION RATE > 60.0 (>39); GLUCOSE, FASTING 110 MG/DL (70-100); POTASSIUM SERUM 3.9 MEQ/L (3.5-5.1); SODIUM LEVEL 141 MEQ/L (136-145)
[2019-06-26] MEDS: RAMELTEON 8 MG TAB (ROZEREM) PO PRN (20:04)
[2019-06-26] MEDS: PRAVASTATIN 20 MG TAB PO SCH (20:05)
[2019-06-26] MEDS: SERTRALINE HCL 25 MG TABLET PO SCH (20:05)
[2019-06-27 06:00] VITALS: BP 123/64
[2019-06-27] MEDS: OMEPRAZOLE 20 MG CAP PO SCH ×2 (08:50→20:03)
[2019-06-27] MEDS: QUINAPRIL 20 MG TAB PO SCH (08:50)
[2019-06-27] MEDS: LEVOTHYROXINE 112MCG TABLET (0.112MG) PO SCH (08:50)
[2019-06-27] MEDS: ACETAMINOPHEN 650MG ER TAB (TYLENOL ARTHRITIS) PO SCH ×3 (08:50→20:06)
[2019-06-27] MEDS: QUEtiapine FUMARATE 12.5 MG HALF-TAB PO SCH ×2 (08:50→20:02)
[2019-06-27] MEDS: MULTIVITAMINS/MINERALS THERAP 1 TAB PO SCH (08:51)
[2019-06-27] MEDS: OYSTER SHELL CALCIUM 500 MG TAB PO SCH ×3 (08:51→20:05)
[2019-06-27] MEDS: hydroCHLOROthiazide 12.5 MG CAPSULE PO SCH (08:51)
[2019-06-27] MEDS: SERTRALINE HCL 25 MG TABLET PO SCH (20:02)
[2019-06-27] MEDS: RAMELTEON 8 MG TAB (ROZEREM) PO PRN (20:02)
[2019-06-27] MEDS: PRAVASTATIN 20 MG TAB PO SCH (20:03)
[2019-06-28 06:00] VITALS: BP 139/65
[2019-06-28] MEDS: QUEtiapine FUMARATE 12.5 MG HALF-TAB PO SCH ×2 (07:53→22:10)
[2019-06-28] MEDS: ACETAMINOPHEN 650MG ER TAB (TYLENOL ARTHRITIS) PO SCH ×2 (07:53→22:10)
[2019-06-28] MEDS: QUINAPRIL 20 MG TAB PO SCH (07:53)
[2019-06-28] MEDS: OMEPRAZOLE 20 MG CAP PO SCH ×3 (07:55→22:11)
[2019-06-28] MEDS: hydroCHLOROthiazide 12.5 MG CAPSULE PO SCH ×2 (07:55→08:13)
[2019-06-28] MEDS: OYSTER SHELL CALCIUM 500 MG TAB PO SCH ×3 (07:55→22:11)
[2019-06-28] MEDS: MULTIVITAMINS/MINERALS THERAP 1 TAB PO SCH ×2 (07:56→08:13)
[2019-06-28] MEDS: LEVOTHYROXINE 112MCG TABLET (0.112MG) PO SCH ×2 (07:56→08:13)
[2019-06-28] MEDS ORDERED: LORazepam 2 MG/ML VIAL IM STA (08:23)
[2019-06-28] MEDS ORDERED: LORazepam 2 MG/ML VIAL IM PRN (08:30)
--- NOTE | 2019-06-28 16:03 | IPNPDOC ---
Text Note Date of Service The patient was seen on 06/28/19. NOTE Subjective: Patient agitated in the morning, stated that she wants to see her . Also she requested her clothes and car quinones. VITAL SIGNS: Please see below. GENERAL: awake, alert, NAD HEENT: NCAT, anicteric sclera, CORDELL NECK: supple, no JVD CARDIOVASCULAR EXAMINATION: NS1S2, regular rate/rhythm RESPIRATORY EXAMINATION: CTA b/l, no wheezes/rales/rhonchi ABDOMINAL EXAMINATION: positive bowel sounds x 4, NT EXTREMITIES: no cyanosis, clubbing, edema SKIN: warm, no rashes. NEUROLOGICAL EXAMINATION: AAO x 3, no motor/sensory deficits ASSESSMENT: Patient is 78 years old female past mental history of dementia, hypothyroidism who was admitted with altered mental status. Patient was diagnosed with advanced dementia. Patient called 911 because she couldn't find her . Unfortunately, her has was placed in hospice house few days ago and has since passed. EMS brought her to the hospital because she was confused, didn't have food or toiletries at home. Chronic HTN Blood pressures under control Continue home meds Hypothyroidism levothyroxine Dyslipidemia Continue statin GERD Continue with omeprazole Agitation/delirium/psychosis Patient intermittently developed agitation with psychotic features Haldol when necessary Seroquel daily at bedtime Ativan IM for sever agitation/ aggression VS,Fishbone, I+O VS, Fishbone, I+O Vital Signs Date Time Temp Pulse Resp B/P (MAP) Pulse Ox O2 Delivery O2 Flow Rate FiO2 06/28/19 07:53 139/65 06/28/19 06:00 98.3 51 17 95 Room Air I&O- Last 24 Hours up to 6 AM 06/28/19 06:00 Intake Total 600 ml Balance 600 ml LALA GONZALEZ DO June 28, 2019 16:03
[2019-06-28] MEDS: PRAVASTATIN 20 MG TAB PO SCH (22:10)
[2019-06-28] MEDS: SERTRALINE HCL 25 MG TABLET PO SCH (22:11)
[2019-06-29 06:00] VITALS: BP 110/63
[2019-06-29] MEDS: LEVOTHYROXINE 112MCG TABLET (0.112MG) PO SCH (09:35)
[2019-06-29] MEDS: ACETAMINOPHEN 650MG ER TAB (TYLENOL ARTHRITIS) PO SCH ×2 (09:35→21:13)
[2019-06-29] MEDS: QUEtiapine FUMARATE 12.5 MG HALF-TAB PO SCH ×2 (09:35→21:14)
[2019-06-29] MEDS: QUINAPRIL 20 MG TAB PO SCH (09:35)
[2019-06-29] MEDS: MULTIVITAMINS/MINERALS THERAP 1 TAB PO SCH (09:36)
[2019-06-29] MEDS: OYSTER SHELL CALCIUM 500 MG TAB PO SCH ×2 (09:36→21:14)
[2019-06-29] MEDS: hydroCHLOROthiazide 12.5 MG CAPSULE PO SCH (09:36)
[2019-06-29] MEDS: OMEPRAZOLE 20 MG CAP PO SCH ×2 (09:36→21:13)
[2019-06-29] MEDS: RAMELTEON 8 MG TAB (ROZEREM) PO PRN (21:13)
[2019-06-29] MEDS: SERTRALINE HCL 25 MG TABLET PO SCH (21:14)
[2019-06-29] MEDS: PRAVASTATIN 20 MG TAB PO SCH (21:14)
[2019-06-30 06:00] VITALS: BP 125/64
[2019-06-30 09:00] VITALS: BP 108/56
[2019-06-30] MEDS: MULTIVITAMINS/MINERALS THERAP 1 TAB PO SCH (09:20)
[2019-06-30] MEDS: QUEtiapine FUMARATE 12.5 MG HALF-TAB PO SCH ×2 (09:21→20:18)
[2019-06-30] MEDS: ACETAMINOPHEN 650MG ER TAB (TYLENOL ARTHRITIS) PO SCH ×2 (09:21→20:18)
[2019-06-30] MEDS: OMEPRAZOLE 20 MG CAP PO SCH ×2 (09:21→20:18)
[2019-06-30] MEDS: OYSTER SHELL CALCIUM 500 MG TAB PO SCH ×2 (09:21→20:18)
[2019-06-30] MEDS: QUINAPRIL 20 MG TAB PO SCH (09:22)
[2019-06-30] MEDS: LEVOTHYROXINE 112MCG TABLET (0.112MG) PO SCH (09:22)
[2019-06-30] MEDS: hydroCHLOROthiazide 12.5 MG CAPSULE PO SCH (09:22)
[2019-06-30] MEDS: RAMELTEON 8 MG TAB (ROZEREM) PO PRN (20:18)
[2019-06-30] MEDS: PRAVASTATIN 20 MG TAB PO SCH (20:18)
[2019-06-30] MEDS: SERTRALINE HCL 25 MG TABLET PO SCH (20:18)
[2019-07-01 06:33] VITALS: BP 121/63
[2019-07-01] MEDS: OYSTER SHELL CALCIUM 500 MG TAB PO SCH ×2 (10:16→20:14)
[2019-07-01] MEDS: LEVOTHYROXINE 112MCG TABLET (0.112MG) PO SCH (10:16)
[2019-07-01] MEDS: MULTIVITAMINS/MINERALS THERAP 1 TAB PO SCH (10:16)
[2019-07-01] MEDS: ACETAMINOPHEN 650MG ER TAB (TYLENOL ARTHRITIS) PO SCH ×2 (10:17→20:14)
[2019-07-01] MEDS: hydroCHLOROthiazide 12.5 MG CAPSULE PO SCH (10:17)
[2019-07-01] MEDS: QUINAPRIL 20 MG TAB PO SCH (10:17)
[2019-07-01] MEDS: QUEtiapine FUMARATE 12.5 MG HALF-TAB PO SCH (10:17)
[2019-07-01] MEDS: OMEPRAZOLE 20 MG CAP PO SCH ×2 (10:18→20:14)
[2019-07-01] MEDS ORDERED: QUEtiapine FUMARATE 25 MG TAB PO ONE (16:00)
[2019-07-01] MEDS ORDERED: ONDANSETRON 4 MG TAB PO SCH (18:00)
[2019-07-01] MEDS ORDERED: ONDANSETRON 4 MG TAB PO PRN (18:00)
[2019-07-01] MEDS: MIRALAX *UNIT DOSE* 17GM PACKET PO PRN (20:13)
[2019-07-01] MEDS: QUEtiapine FUMARATE 25 MG TAB PO SCH (20:14)
[2019-07-01] MEDS: SERTRALINE HCL 25 MG TABLET PO SCH (20:14)
[2019-07-01] MEDS: PRAVASTATIN 20 MG TAB PO SCH (20:14)
[2019-07-01] MEDS: RAMELTEON 8 MG TAB (ROZEREM) PO PRN (20:14)
[2019-07-02 06:02] VITALS: BP 124/75
[2019-07-02] MEDS: LEVOTHYROXINE 112MCG TABLET (0.112MG) PO SCH (08:33)
[2019-07-02] MEDS: QUEtiapine FUMARATE 25 MG TAB PO SCH ×2 (08:33→20:18)
[2019-07-02] MEDS: QUINAPRIL 20 MG TAB PO SCH (08:34)
[2019-07-02] MEDS: OMEPRAZOLE 20 MG CAP PO SCH ×2 (08:34→20:18)
[2019-07-02] MEDS: MULTIVITAMINS/MINERALS THERAP 1 TAB PO SCH (08:34)
[2019-07-02] MEDS: hydroCHLOROthiazide 12.5 MG CAPSULE PO SCH (08:34)
[2019-07-02] MEDS: OYSTER SHELL CALCIUM 500 MG TAB PO SCH ×2 (08:34→20:18)
[2019-07-02] MEDS: ACETAMINOPHEN 650MG ER TAB (TYLENOL ARTHRITIS) PO SCH ×2 (08:35→20:17)
[2019-07-02 09:00] VITALS: BP 127/62
[2019-07-02] MEDS: PRAVASTATIN 20 MG TAB PO SCH (20:18)
[2019-07-02] MEDS: SERTRALINE HCL 25 MG TABLET PO SCH (20:18)
[2019-07-02] MEDS: RAMELTEON 8 MG TAB (ROZEREM) PO PRN (20:23)
[2019-07-03 06:33] VITALS: BP 137/66
[2019-07-03] MEDS: ACETAMINOPHEN 650MG ER TAB (TYLENOL ARTHRITIS) PO SCH ×2 (08:58→20:54)
[2019-07-03] MEDS: LEVOTHYROXINE 112MCG TABLET (0.112MG) PO SCH (08:59)
[2019-07-03] MEDS: QUINAPRIL 20 MG TAB PO SCH (08:59)
[2019-07-03] MEDS: OYSTER SHELL CALCIUM 500 MG TAB PO SCH ×2 (08:59→20:54)
[2019-07-03] MEDS: OMEPRAZOLE 20 MG CAP PO SCH ×2 (08:59→20:54)
[2019-07-03] MEDS: MULTIVITAMINS/MINERALS THERAP 1 TAB PO SCH (08:59)
[2019-07-03 09:00] VITALS: BP 126/62
[2019-07-03] MEDS: hydroCHLOROthiazide 12.5 MG CAPSULE PO SCH (09:00)
[2019-07-03] MEDS: QUEtiapine FUMARATE 25 MG TAB PO SCH ×2 (09:00→20:54)
[2019-07-03 10:56] LABS: HEMATOCRIT 39.3 % (36.0-47.0); HEMOGLOBIN 13.4 g/dl (12.0-15.5); MEAN CORPUSCULAR HEMOGLOBIN 32.1 pg (27.0-33.0); MEAN CORPUSCULAR HGB CONC 34.1 g/dl (32.0-36.5); MEAN CORPUSCULAR VOLUME 94.2 fl (80.0-96.0); PLATELET COUNT, AUTOMATED 230 10^3/uL (150-450); RED BLOOD COUNT 4.17 10^6/uL (4.00-5.40); WHITE BLOOD COUNT 6.1 10^3/uL (4.0-10.0)
[2019-07-03 11:15] LABS: BLOOD UREA NITROGEN 12 MG/DL (7-18); CALCIUM LEVEL 8.6 MG/DL (8.8-10.2); CARBON DIOXIDE LEVEL 33 MEQ/L (21-32); CHLORIDE LEVEL 104 MEQ/L (98-107); CREATININE FOR GFR 0.89 MG/DL (0.55-1.30); GLOMERULAR FILTRATION RATE > 60.0 (>39); GLUCOSE, FASTING 98 MG/DL (70-100); POTASSIUM SERUM 3.4 MEQ/L (3.5-5.1); SODIUM LEVEL 141 MEQ/L (136-145)
[2019-07-03] MEDS: RAMELTEON 8 MG TAB (ROZEREM) PO PRN (20:54)
[2019-07-03] MEDS: SERTRALINE HCL 25 MG TABLET PO SCH (20:54)
[2019-07-03] MEDS: PRAVASTATIN 20 MG TAB PO SCH (20:54)
[2019-07-04 06:05] VITALS: BP 136/67
[2019-07-04] MEDS ORDERED: RAME8TAB2 PO (07:25)
[2019-07-04] MEDS ORDERED: OMEP-218 PO (07:25)
[2019-07-04] MEDS ORDERED: QUET1TAB7 PO (07:25)
[2019-07-04] MEDS ORDERED: ACE65ERTAB PO (07:25)
[2019-07-04] MEDS ORDERED: CALC200T15 PO (07:25)
[2019-07-04] MEDS ORDERED: CALCI50TA PO (07:25)
[2019-07-04] MEDS ORDERED: SERT25TA21 PO (07:25)
[2019-07-04] MEDS ORDERED: POTASSIUM CHLORIDE 10 MEQ SR TABLET PO ONE (07:30)
[2019-07-04 08:48] VITALS: BP 136/67
[2019-07-04] MEDS: QUEtiapine FUMARATE 25 MG TAB PO SCH (08:48)
[2019-07-04] MEDS: QUINAPRIL 20 MG TAB PO SCH (08:48)
[2019-07-04] MEDS: LEVOTHYROXINE 112MCG TABLET (0.112MG) PO SCH (08:48)
[2019-07-04] MEDS: MULTIVITAMINS/MINERALS THERAP 1 TAB PO SCH (08:48)
[2019-07-04] MEDS: OYSTER SHELL CALCIUM 500 MG TAB PO SCH (08:48)
[2019-07-04] MEDS: OMEPRAZOLE 20 MG CAP PO SCH (08:48)
[2019-07-04] MEDS: hydroCHLOROthiazide 12.5 MG CAPSULE PO SCH (08:49)
[2019-07-04] MEDS: ACETAMINOPHEN 650MG ER TAB (TYLENOL ARTHRITIS) PO SCH (08:49)
--- NOTE | 2019-07-07 10:02 | DSES ---
DATE OF ADMISSION: 05/15/2019 DATE OF DISCHARGE: 07/04/2019 The patient was changed to ALC/SNF status on 05/16/2019. The patient is discharged to [facility] on 07/04/2019. PRIMARY DISCHARGE DIAGNOSES: 1. Agitation. 2. Acute delirium. 3. Psychosis. 4. Chronic dementia. 5. Chronic hypertension. 6. Hypothyroidism. 7. Dyslipidemia. 8. Reflux. 9. Chronic obstructive pulmonary disease, compensated. 10. Hypokalemia. DISCHARGE MEDICATIONS: - calcium carbonate 500 twice a day - hydrochlorothiazide 12.5 mg daily - Synthroid 112 mcg daily - multivitamin one tablet daily - omeprazole 20 mg twice a day - pravastatin 20 mg at bedtime - quinapril 10 mg daily - acetaminophen 1.3 grams twice a day - calcium carbonate 1 gram with meals as needed - omeprazole 20 twice a day - calcium with vitamin D 500 twice a day - quetiapine 25 mg twice a day - ramelteon 8 mg at bedtime as needed - Sertraline 25 mg at bedtime - hydrochlorothiazide 12.5 daily - Synthroid 112 mcg daily - multivitamin one tablet daily - pravastatin 20 mg at bedtime - quinapril 10 mg daily HOSPITAL COURSE: This is a 78-year-old female admitted on 05/15/2019 after being brought by EMS. The patient's was placed on hospice two days prior to presentation. She was brought in confused and did not have any food or toiletries at home. The patient had no acute complaints. She was admitted for placement. The patient was evaluated for worsening dementia. CT of the head showed mild to moderate atrophy, slightly progressed, with scattered foci of white matter hypodensity likely representing small vessel ischemic disease. Chest x-ray showed chronic obstructive pulmonary disease (COPD) with no acute disease. The patient was continued on hydrochlorothiazide, quinapril, levothyroxine, Prevacid and Prilosec. She had episodes of worsening psychosis for which the psychiatrist had evaluated her and recommended placement. She did not have any capacity to make medical decisions and is appropriate for skilled nursing placement. She was subsequently placed on Seroquel at bedtime. She complained of chronic back pain which was treated with acetaminophen 1.3 grams twice a day. Due to complaints of chest pain, chest x-ray was obtained which showed no acute cardiopulmonary disease. EKG was unremarkable and no acute ischemic changes. The patient is stable for hospital discharge. PHYSICAL EXAMINATION ON DISCHARGE: Temperature 98.2, pulse 55, respiratory rate 18, blood pressure 136/67, 99% on room air. Generally, the patient is awake, alert and oriented to herself only. Lungs are clear to auscultation. No wheezing, rales or rhonchi. Heart: S1, S2. Sinus rhythm. Abdomen: Soft. Nontender. Nondistended. Positive bowel sounds. Extremities: No pitting edema. LABORATORY DATA: On 07/03/2019, white count 6.1, hemoglobin 13, hematocrit 39, and platelet count 230. Sodium 141, potassium 3.4, chloride 104, bicarbonate 32, BUN 12, creatinine 0.89, glucose 98. CT of the head with small vessel ischemic disease. Chest x-ray with no acute cardiopulmonary disease, COPD. TIME SPENT ON DISCHARGE: 30 minutes. MTDD
== END 2019-07-04 10:05 | DRG 884 ==
LOC: EDBD 18:20 → M ED 18:20 → M ED INP 22:21 → ENRESERVTM 23:07 → ENRESERVDT 23:07 → M MS5PR 23:52
PROVIDERS: ADMIT Internal Medicine; ATTEND General Practice
DX: F03.91 Unspecified dementia, unspecified severity, with behavioral disturbance (principal); G93.40 Encephalopathy, unspecified; I10 Essential (primary) hypertension; F43.0 Acute stress reaction; E03.9 Hypothyroidism, unspecified; E78.5 Hyperlipidemia, unspecified; E87.6 Hypokalemia; J44.9 Chronic obstructive pulmonary disease, unspecified; K21.9 Gastro-esophageal reflux disease without esophagitis; Z79.899 Other long term (current) drug therapy; Z91.041 Radiographic dye allergy status; Z91.013 Allergy to seafood; Z88.5 Allergy status to narcotic agent; Z88.8 Allergy status to other drugs, medicaments and biological substances; Z88.7 Allergy status to serum and vaccine; Z85.51 Personal history of malignant neoplasm of bladder

== ENCOUNTER → 2019-07-20 | Outpatient (REF) | payer MEDICARE, OTHER ==
[~2019-07-20] MED LIST: ACE65ERTAB PO; CALC200T15 PO; CALCI50TA PO; DONE10TA90 PO; HYDR12.55 PO; LEVO112T2 PO; OMEP-218 PO; OMEP1CAP73 PO; OYST1TAB PO; PRAV20TA2 PO; QUET1TAB7 PO; QUIN10TA32 PO; RAME8TAB2 PO; SERT25TA21 PO; SYNT112T2 PO; VITMTA PO
[2019-07-20 08:04] LABS: HEMOGLOBIN 12.9 g/dl (12.0-15.5); MEAN CORPUSCULAR HEMOGLOBIN 31.8 pg (27.0-33.0); MEAN CORPUSCULAR HGB CONC 33.1 g/dl (32.0-36.5); MEAN CORPUSCULAR VOLUME 96.1 fl (80.0-96.0); PLATELET COUNT, AUTOMATED 209 10^3/uL (150-450); RED BLOOD COUNT 4.06 10^6/uL (4.00-5.40); WHITE BLOOD COUNT 6.8 10^3/uL (4.0-10.0)
[2019-07-20 08:37] LABS: ALBUMIN 3.3 GM/DL (3.2-5.2); ALT/SGPT 22 U/L (12-78); BILIRUBIN,TOTAL 0.5 MG/DL (0.2-1.0); BLOOD UREA NITROGEN 13 MG/DL (7-18); CALCIUM LEVEL 8.5 MG/DL (8.8-10.2); CARBON DIOXIDE LEVEL 31 MEQ/L (21-32); CHLORIDE LEVEL 107 MEQ/L (98-107); CHOLESTEROL LEVEL 153 MG/DL (<200); CHOLESTEROL RISK RATIO 3.923 (<5); CREATININE FOR GFR 0.74 MG/DL (0.55-1.30); GLOMERULAR FILTRATION RATE > 60.0 (>39); GLUCOSE, FASTING 90 MG/DL (70-100); HDL CHOLESTEROL 39 MG/DL (>40); LDL CHOLESTEROL 73 MG/DL (<100); NON-HDL-C 114 MG/DL; POTASSIUM SERUM 3.9 MEQ/L (3.5-5.1); SODIUM LEVEL 144 MEQ/L (136-145); THYROID STIMULATING HORMONE 0.289 uIU/ML (0.358-3.740); TOTAL PROTEIN 6.2 GM/DL (6.4-8.2); TRIGLYCERIDES LEVEL 203 MG/DL (<150)
== END ==
LOC: SKLAB6 07:00
PROVIDERS: ATTEND Internal Medicine
DX: Z79.899 Other long term (current) drug therapy (principal)

== ENCOUNTER → 2019-08-17 | Outpatient (REF) | payer MEDICARE, OTHER ==
[2019-08-17 14:39] LABS: VITAMIN B12 LEVEL 333 PG/ML (247-911)
== END ==
LOC: SKLAB6 07:00
DX: E07.9 Disorder of thyroid, unspecified (principal); E78.5 Hyperlipidemia, unspecified; I10 Essential (primary) hypertension; Z85.51 Personal history of malignant neoplasm of bladder; Z11.3 Encounter for screening for infections with a predominantly sexual mode of transmission; Z11.59 Encounter for screening for other viral diseases

== ENCOUNTER → 2019-09-08 | Outpatient (CLI) | payer MEDICARE, OTHER ==
--- NOTE | 2019-10-30 08:04 | REP ---
ULTRASOUND OF THE RIGHT POSTERIOR WALL SOFT TISSUES: HISTORY: Mass. FINDINGS: Real time sonographic evaluation of the right posterior deltoid region performed at the site of the palpable lump. There is a large hypoechoic somewhat heterogeneous solid mass at that location measuring 4.8 x 1.7 x 3.4 cm. Internal blood flow is seen with Doppler evaluation. The finding is nonspecific. Recommend ultrasound-guided biopsy. MTDD
== END ==
LOC: M RAD 14:30
PROVIDERS: ATTEND Nurse Practitioner Family
DX: R22.31 Localized swelling, mass and lump, right upper limb (principal)

== ENCOUNTER → 2019-10-12 | Outpatient (REF) | payer MEDICARE, OTHER ==
[2019-10-17 18:07] LABS: Methylmalonic Acid 292 nmol/L (0-378)
== END ==
LOC: SKLAB6 07:00
DX: E03.9 Hypothyroidism, unspecified (principal)

== ENCOUNTER → 2019-10-19 | Outpatient (REF) | payer MEDICARE, OTHER | LOC: SKLAB6 07:00 | DX: E03.9 Hypothyroidism, unspecified (principal) ==

== ENCOUNTER → 2019-12-27 | Outpatient (REF) | payer MEDICARE, OTHER ==
[~2019-12-27] MED LIST changes: -QUET1TAB7 PO; +QUET25TA3 PO
== END ==
LOC: SKLAB6 12-26 13:23 → EDSTATUS 02-01 12:47
DX: Z20.828 Contact with and (suspected) exposure to other viral communicable diseases (principal)

== ENCOUNTER → 2020-01-03 | Outpatient (REF) | payer MEDICARE, OTHER | LOC: SKLAB6 08:00 | PROVIDERS: ATTEND Internal Medicine | DX: Z20.828 Contact with and (suspected) exposure to other viral communicable diseases (principal) ==

== ENCOUNTER → 2020-01-10 | Outpatient (REF) | payer MEDICARE, OTHER ==
[2020-01-10 16:11] LABS: INFLUENZA A AMPLIFICATION NEGATIVE (NEGATIVE); INFLUENZA B AMPLIFICATION NEGATIVE (NEGATIVE)
== END ==
LOC: SKLAB6 08:00
PROVIDERS: ATTEND Internal Medicine
DX: Z20.828 Contact with and (suspected) exposure to other viral communicable diseases (principal); Z11.59 Encounter for screening for other viral diseases
CPT/HCPCS: 87502; U0003

== ENCOUNTER → 2020-01-17 | Outpatient (REF) | payer MEDICARE, OTHER ==
[~2020-01-17] MED LIST changes: +QUET1TAB7 PO; -QUET25TA3 PO
== END ==
LOC: SKLAB6 10:00
DX: Z20.828 Contact with and (suspected) exposure to other viral communicable diseases (principal)

== ENCOUNTER → 2020-01-18 | Outpatient (REF) | payer MEDICARE, OTHER ==
[2020-01-18 09:07] LABS: HEMATOCRIT 39.3 % (36.0-47.0); HEMOGLOBIN 12.8 g/dl (12.0-15.5); MEAN CORPUSCULAR HEMOGLOBIN 29.6 pg (27.0-33.0); MEAN CORPUSCULAR HGB CONC 32.6 g/dl (32.0-36.5); PLATELET COUNT, AUTOMATED 202 10^3/uL (150-450); RED BLOOD COUNT 4.32 10^6/uL (4.00-5.40); WHITE BLOOD COUNT 5.6 10^3/uL (4.0-10.0)
[2020-01-18 09:43] LABS: BLOOD UREA NITROGEN 12 MG/DL (7-18); CALCIUM LEVEL 8.8 MG/DL (8.8-10.2); CARBON DIOXIDE LEVEL 27 MEQ/L (21-32); CHLORIDE LEVEL 111 MEQ/L (98-107); CREATININE FOR GFR 0.73 MG/DL (0.55-1.30); GLOMERULAR FILTRATION RATE > 60.0 (>39); GLUCOSE, FASTING 84 MG/DL (70-100); POTASSIUM SERUM 3.9 MEQ/L (3.5-5.1); SODIUM LEVEL 144 MEQ/L (136-145); THYROID STIMULATING HORMONE 0.345 uIU/ML (0.358-3.740)
== END ==
LOC: SKLAB6 07:00
DX: E03.9 Hypothyroidism, unspecified (principal)

== ENCOUNTER → 2020-01-24 | Outpatient (CLI) | payer MEDICARE, OTHER | LOC: M RAD 14:04 | PROVIDERS: ATTEND Nurse Practitioner Family | DX: M41.85 Other forms of scoliosis, thoracolumbar region (principal); M51.36 Other intervertebral disc degeneration, lumbar region; Z85.51 Personal history of malignant neoplasm of bladder ==

== ENCOUNTER → 2020-01-24 | Outpatient (REF) | payer MEDICARE, OTHER ==
[2020-01-24 12:49] LABS: APPEARANCE, URINE CLEAR (CLEAR); BACTERIA, URINE AUTO NEGATIVE (NEGATIVE); BILIRUBIN, URINE AUTO NEGATIVE (NEGATIVE); BLOOD, URINE BLOOD NEGATIVE (NEGATIVE); COLOR, URINE YELLOW (YELLOW); GLUCOSE, URINE (UA) AUTO NEGATIVE (NEGATIVE); KETONE, URINE AUTO NEGATIVE (NEGATIVE); LEUKOCYTE ESTERASE, URINE AUTO NEGATIVE (NEGATIVE); NITRITE, URINE AUTO NEGATIVE (NEGATIVE); PROTEIN, URINE AUTO NEGATIVE (NEGATIVE); RBC, URINE AUTO 1 /HPF (0-3); SPECIFIC GRAVITY URINE AUTO 1.014 (1.002-1.035); SQUAMOUS EPITHELIAL CELL UR AU 0 /HPF (0-6); UROBILINOGEN, URINE AUTO 0.2 mg/dL (0.0-2.0); WBC, URINE AUTO 0 /HPF (0-3)
[2020-01-24 14:22] LABS: HEMATOCRIT 39.2 % (36.0-47.0); HEMOGLOBIN 12.9 g/dl (12.0-15.5); MEAN CORPUSCULAR HEMOGLOBIN 30.6 pg (27.0-33.0); MEAN CORPUSCULAR HGB CONC 32.9 g/dl (32.0-36.5); MEAN CORPUSCULAR VOLUME 92.9 fl (80.0-96.0); PLATELET COUNT, AUTOMATED 201 10^3/uL (150-450); RED BLOOD COUNT 4.22 10^6/uL (4.00-5.40); WHITE BLOOD COUNT 6.6 10^3/uL (4.0-10.0)
[2020-01-24 14:51] LABS: BLOOD UREA NITROGEN 12 MG/DL (7-18); CALCIUM LEVEL 8.7 MG/DL (8.8-10.2); CARBON DIOXIDE LEVEL 29 MEQ/L (21-32); CHLORIDE LEVEL 111 MEQ/L (98-107); CREATININE FOR GFR 0.81 MG/DL (0.55-1.30); GLOMERULAR FILTRATION RATE > 60.0 (>39); GLUCOSE, FASTING 127 MG/DL (70-100); SODIUM LEVEL 142 MEQ/L (136-145)
--- NOTE | 2020-01-24 16:06 | REP ---
INDICATION: LOW BACK PAIN. COMPARISON: Lumbar spine plain film study dated 03/23/2013. TECHNIQUE: There are five views. FINDINGS: Vertebral body heights and alignment are normal. This is unchanged. There is scoliosis convex right of the thoracolumbar junction. This is unchanged. There is multilevel degenerative disc disease, most advanced at L4-5. This is unchanged. The pedicles and facets are unremarkable. This is unchanged. The sacroiliac articulations are unremarkable. This is unchanged. There is a mottled calcification in the pelvis on the left, unchanged, likely a calcified uterine fibroid. IMPRESSION: Thoracolumbar scoliosis convex right. Multilevel degenerative disc disease most advanced at L4-5. Calcified fibroid in the pelvis. <Electronically signed by Howei Hall > 01/24/20 [id number]
== END ==
LOC: SKLAB6 11:26
PROVIDERS: ATTEND Nurse Practitioner Family
DX: M41.85 Other forms of scoliosis, thoracolumbar region (principal); M51.36 Other intervertebral disc degeneration, lumbar region; Z85.51 Personal history of malignant neoplasm of bladder
CPT/HCPCS: 36415; 72110; 80048; 81001; 85027; 87086; 87502; U0003

== ENCOUNTER → 2020-01-24 | Outpatient (REF) | payer MEDICARE, OTHER ==
[2020-01-24 12:38] LABS: INFLUENZA A AMPLIFICATION NEGATIVE (NEGATIVE); INFLUENZA B AMPLIFICATION NEGATIVE (NEGATIVE)
== END ==
LOC: SKLAB6 12:33
DX: Z20.828 Contact with and (suspected) exposure to other viral communicable diseases (principal)
CPT/HCPCS: 87502; U0003

== ENCOUNTER → 2020-01-31 | Outpatient (REF) | payer MEDICARE, OTHER | LOC: SKLAB6 09:00 | DX: Z20.828 Contact with and (suspected) exposure to other viral communicable diseases (principal) ==

== ENCOUNTER → 2020-02-07 | Outpatient (REF) | payer MEDICARE, OTHER | LOC: SKLAB6 07:00 | DX: Z20.828 Contact with and (suspected) exposure to other viral communicable diseases (principal) ==

== ENCOUNTER → 2020-02-14 | Outpatient (REF) | payer MEDICARE, OTHER | LOC: SKLAB6 10:00 | PROVIDERS: ATTEND Internal Medicine | DX: Z11.52 Encounter for screening for COVID-19 (principal) ==

== ENCOUNTER → 2020-02-21 | Outpatient (REF) | payer MEDICARE, OTHER | LOC: SKLAB6 10:00 | PROVIDERS: ATTEND Internal Medicine | DX: Z20.822 Contact with and (suspected) exposure to COVID-19 (principal) ==

== ENCOUNTER → 2020-02-28 | Outpatient (REF) | payer MEDICARE, OTHER ==
[~2020-02-28] MED LIST changes: -QUET1TAB7 PO; +QUET25TA3 PO
== END ==
LOC: SKLAB6 09:00
PROVIDERS: ATTEND Internal Medicine
DX: Z20.822 Contact with and (suspected) exposure to COVID-19 (principal)

== ENCOUNTER → 2020-03-06 | Outpatient (REF) | payer MEDICARE, OTHER ==
[~2020-03-06] MED LIST changes: +QUET1TAB7 PO; -QUET25TA3 PO
[2020-03-06 13:26] LABS: INFLUENZA A AMPLIFICATION NEGATIVE (NEGATIVE); INFLUENZA B AMPLIFICATION NEGATIVE (NEGATIVE)
== END ==
LOC: SKLAB6 07:00
PROVIDERS: ATTEND Internal Medicine
DX: Z20.822 Contact with and (suspected) exposure to COVID-19 (principal)
CPT/HCPCS: 87502; U0003

== ENCOUNTER → 2020-03-13 | Outpatient (REF) | payer MEDICARE, OTHER | LOC: SKLAB6 10:00 | PROVIDERS: ATTEND Internal Medicine | DX: Z20.822 Contact with and (suspected) exposure to COVID-19 (principal) ==

== ENCOUNTER → 2020-03-20 | Outpatient (REF) | payer MEDICARE, OTHER ==
[~2020-03-20] MED LIST changes: -QUET1TAB7 PO; +QUET25TA3 PO
== END ==
LOC: SKLAB6 07:00
PROVIDERS: ATTEND Internal Medicine
DX: Z20.822 Contact with and (suspected) exposure to COVID-19 (principal)

== ENCOUNTER → 2020-03-27 | Outpatient (REF) | payer MEDICARE, OTHER | LOC: SKLAB6 10:00 | PROVIDERS: ATTEND Internal Medicine | DX: Z11.52 Encounter for screening for COVID-19 (principal) ==

== ENCOUNTER → 2020-04-03 | Outpatient (REF) | payer MEDICARE, OTHER | LOC: SKLAB6 10:00 | PROVIDERS: ATTEND Internal Medicine | DX: Z20.822 Contact with and (suspected) exposure to COVID-19 (principal) ==

== ENCOUNTER → 2020-04-17 | Outpatient (REF) | payer MEDICARE, OTHER | LOC: SKLAB6 12:10 | PROVIDERS: ATTEND Internal Medicine | DX: Z20.822 Contact with and (suspected) exposure to COVID-19 (principal) ==

== ENCOUNTER → 2020-04-24 | Outpatient (REF) | payer MEDICARE, OTHER | LOC: SKLAB6 09:00 | PROVIDERS: ATTEND Internal Medicine | DX: Z20.822 Contact with and (suspected) exposure to COVID-19 (principal) ==

== ENCOUNTER → 2020-05-10 | Outpatient (REF) | payer MEDICARE, OTHER | LOC: SKLAB6 10:00 | PROVIDERS: ATTEND Internal Medicine | DX: Z20.822 Contact with and (suspected) exposure to COVID-19 (principal) ==

== ENCOUNTER → 2020-06-20 | Outpatient (REF) | payer MEDICARE, OTHER ==
[2020-06-20 10:27] LABS: HEMOGLOBIN A1c 5.7 %
== END ==
LOC: SKLAB6 06-19 07:00
DX: E11.9 Type 2 diabetes mellitus without complications (principal)

== ENCOUNTER → 2020-07-18 | Outpatient (REF) | payer MEDICARE, OTHER ==
[2020-07-18 11:06] LABS: HEMATOCRIT 38.1 % (36.0-47.0); HEMOGLOBIN 12.4 g/dl (12.0-15.5); MEAN CORPUSCULAR HEMOGLOBIN 30.6 pg (27.0-33.0); MEAN CORPUSCULAR HGB CONC 32.5 g/dl (32.0-36.5); MEAN CORPUSCULAR VOLUME 94.1 fl (80.0-96.0); PLATELET COUNT, AUTOMATED 196 10^3/uL (150-450); RED BLOOD COUNT 4.05 10^6/uL (4.00-5.40); WHITE BLOOD COUNT 6.7 10^3/uL (4.0-10.0)
[2020-07-18 12:21] LABS: BLOOD UREA NITROGEN 12 MG/DL (7-18); CALCIUM LEVEL 8.6 MG/DL (8.8-10.2); CARBON DIOXIDE LEVEL 27 MEQ/L (21-32); CHLORIDE LEVEL 106 MEQ/L (98-107); CREATININE FOR GFR 0.81 MG/DL (0.55-1.30); GLOMERULAR FILTRATION RATE > 60.0 (>39); GLUCOSE, FASTING 128 MG/DL (70-100); POTASSIUM SERUM 3.9 MEQ/L (3.5-5.1); SODIUM LEVEL 141 MEQ/L (136-145)
== END ==
LOC: SKLAB6 07:00
DX: E03.9 Hypothyroidism, unspecified (principal)

== ENCOUNTER → 2020-11-28 | Outpatient (REF) | payer MEDICARE, OTHER ==
[~2020-11-28] MED LIST changes: +QUET1TAB17 PO; -QUET25TA3 PO
== END ==
LOC: SKLAB6 09:18
PROVIDERS: ATTEND Internal Medicine
DX: Z20.822 Contact with and (suspected) exposure to COVID-19 (principal)

== ENCOUNTER → 2020-12-02 | Outpatient (REF) | payer MEDICARE, OTHER | LOC: SKLAB6 06:18 | PROVIDERS: ATTEND Internal Medicine | DX: Z20.822 Contact with and (suspected) exposure to COVID-19 (principal); Z53.8 Procedure and treatment not carried out for other reasons ==

== ENCOUNTER → 2020-12-09 | Outpatient (REF) | payer MEDICARE, OTHER | LOC: SKLAB6 05:49 | PROVIDERS: ATTEND Internal Medicine | DX: Z20.822 Contact with and (suspected) exposure to COVID-19 (principal); Z53.8 Procedure and treatment not carried out for other reasons ==

== ENCOUNTER → 2021-01-16 | Outpatient (REF) | payer MEDICARE, OTHER ==
[2021-01-16 09:56] LABS: HEMATOCRIT 38.6 % (36.0-47.0); HEMOGLOBIN 12.8 g/dl (12.0-15.5); MEAN CORPUSCULAR HEMOGLOBIN 31.1 pg (27.0-33.0); MEAN CORPUSCULAR HGB CONC 33.2 g/dl (32.0-36.5); MEAN CORPUSCULAR VOLUME 93.7 fl (80.0-96.0); PLATELET COUNT, AUTOMATED 242 10^3/uL (150-450); RED BLOOD COUNT 4.12 10^6/uL (4.00-5.40)
[2021-01-16 10:32] LABS: BLOOD UREA NITROGEN 9 MG/DL (7-18); CALCIUM LEVEL 8.8 MG/DL (8.8-10.2); CARBON DIOXIDE LEVEL 26 MEQ/L (21-32); CHLORIDE LEVEL 108 MEQ/L (98-107); GLOMERULAR FILTRATION RATE > 60.0 (>39); GLUCOSE, FASTING 142 MG/DL (70-100); POTASSIUM SERUM 3.9 MEQ/L (3.5-5.1); SODIUM LEVEL 141 MEQ/L (136-145)
== END ==
LOC: SKLAB6 07:00
PROVIDERS: ATTEND Internal Medicine
DX: E03.9 Hypothyroidism, unspecified (principal)

== ENCOUNTER → 2021-02-04 | Outpatient (REF) | payer MEDICARE, OTHER ==
[2021-02-04 08:34] LABS: APPEARANCE, URINE HAZY (CLEAR); BACTERIA, URINE AUTO 1+ (NEGATIVE); BILIRUBIN, URINE AUTO NEGATIVE (NEGATIVE); BLOOD, URINE BLOOD NEGATIVE (NEGATIVE); COLOR, URINE YELLOW (YELLOW); GLUCOSE, URINE (UA) AUTO NEGATIVE (NEGATIVE); KETONE, URINE AUTO NEGATIVE (NEGATIVE); LEUKOCYTE ESTERASE, URINE AUTO 1+ (NEGATIVE); MUCUS, URINE SMALL (NEGATIVE); NITRITE, URINE AUTO POSITIVE (NEGATIVE); PROTEIN, URINE AUTO NEGATIVE (NEGATIVE); RBC, URINE AUTO 0 /HPF (0-3); SPECIFIC GRAVITY URINE AUTO 1.005 (1.002-1.035); SQUAMOUS EPITHELIAL CELL UR AU 0 /HPF (0-6); UROBILINOGEN, URINE AUTO 0.2 mg/dL (0.0-2.0); WBC, URINE AUTO 11 /HPF (0-3)
== END ==
LOC: SKLAB6 03:00
PROVIDERS: ATTEND Nurse Practitioner Family
DX: M54.9 Dorsalgia, unspecified (principal)

== ENCOUNTER → 2021-03-28 | Outpatient (REF) | payer MEDICARE, OTHER ==
[~2021-03-28] MED LIST changes: +OMEP-173 PO; -OMEP-218 PO
== END ==
LOC: SKLAB6 11:22
PROVIDERS: ATTEND Internal Medicine
DX: Z53.8 Procedure and treatment not carried out for other reasons (principal)

== ENCOUNTER → 2021-07-17 | Outpatient (REF) | payer MEDICARE, OTHER ==
[2021-07-17 08:41] LABS: HEMATOCRIT 37.5 % (36.0-47.0); HEMOGLOBIN 12.4 g/dl (12.0-15.5); MEAN CORPUSCULAR HEMOGLOBIN 30.4 pg (27.0-33.0); MEAN CORPUSCULAR HGB CONC 33.1 g/dl (32.0-36.5); MEAN CORPUSCULAR VOLUME 91.9 fl (80.0-96.0); PLATELET COUNT, AUTOMATED 198 10^3/uL (150-450); RED BLOOD COUNT 4.08 10^6/uL (4.00-5.40); WHITE BLOOD COUNT 6.5 10^3/uL (4.0-10.0)
[2021-07-17 09:21] LABS: BLOOD UREA NITROGEN 11 MG/DL (7-18); CALCIUM LEVEL 9.2 MG/DL (8.8-10.2); CARBON DIOXIDE LEVEL 29 MEQ/L (21-32); CHLORIDE LEVEL 108 MEQ/L (98-107); CREATININE FOR GFR 0.91 MG/DL (0.55-1.30); GLOMERULAR FILTRATION RATE > 60.0 (>39); GLUCOSE, FASTING 95 MG/DL (70-100); POTASSIUM SERUM 4.2 MEQ/L (3.5-5.1); SODIUM LEVEL 142 MEQ/L (136-145)
== END ==
LOC: SKLAB6 07:00
PROVIDERS: ATTEND Internal Medicine
DX: E03.9 Hypothyroidism, unspecified (principal)

== ENCOUNTER → 2022-01-15 | Outpatient (REF) | payer MEDICARE, OTHER ==
[2022-01-15 08:04] LABS: HEMOGLOBIN 11.7 g/dl (12.0-15.5); MEAN CORPUSCULAR HEMOGLOBIN 31.5 pg (27.0-33.0); MEAN CORPUSCULAR HGB CONC 32.5 g/dl (32.0-36.5); MEAN CORPUSCULAR VOLUME 96.8 fl (80.0-96.0); PLATELET COUNT, AUTOMATED 197 10^3/uL (150-450); RED BLOOD COUNT 3.72 10^6/uL (4.00-5.40); WHITE BLOOD COUNT 6.8 10^3/uL (4.0-10.0)
[2022-01-15 08:16] LABS: BLOOD UREA NITROGEN 11 MG/DL (9-23); CALCIUM LEVEL 8.3 MG/DL (8.3-10.6); CARBON DIOXIDE LEVEL 28 MMOL/L (20-31); CHLORIDE LEVEL 110 MMOL/L (98-107); CREATININE FOR GFR 0.83 MG/DL (0.55-1.30); GLOMERULAR FILTRATION RATE > 60.0 (>39); GLUCOSE, FASTING 102 MG/DL (74-106); SODIUM LEVEL 144 MMOL/L (136-145)
[2022-01-15 08:19] LABS: THYROID STIMULATING HORMONE 13.632 uIU/ML (0.55-4.78)
== END ==
LOC: SKLAB6 07:00
PROVIDERS: ATTEND Internal Medicine
DX: F03.90 Unspecified dementia, unspecified severity, without behavioral disturbance, psychotic disturbance, mood disturbance, and anxiety (principal)

== ENCOUNTER → 2022-06-22 | Outpatient (REF) | payer MEDICARE, OTHER | LOC: SKLAB6 13:03 | PROVIDERS: ATTEND Internal Medicine | DX: M61.411 Other calcification of muscle, right shoulder (principal) ==

== ENCOUNTER → 2022-07-02 | Outpatient (CLI) | payer MEDICARE, OTHER | LOC: M SOG 08:34 | PROVIDERS: ATTEND Physician Assistant | DX: M25.831 Other specified joint disorders, right wrist (principal) ==

== ENCOUNTER → 2023-01-21 | Outpatient (REF) | payer MEDICARE, OTHER ==
[2023-01-21 06:55] LABS: HEMATOCRIT 36.6 % (36.0-47.0); HEMOGLOBIN 12.1 g/dl (12.0-15.5); MEAN CORPUSCULAR HGB CONC 33.1 g/dl (32.0-36.5); MEAN CORPUSCULAR VOLUME 93.8 fl (80.0-96.0); PLATELET COUNT, AUTOMATED 232 10^3/uL (150-450); WHITE BLOOD COUNT 7.9 10^3/uL (4.0-10.0)
[2023-01-21 07:22] LABS: BLOOD UREA NITROGEN 20 MG/DL (9-23); CALCIUM LEVEL 8.6 MG/DL (8.3-10.6); CARBON DIOXIDE LEVEL 28 MMOL/L (20-31); CHLORIDE LEVEL 105 MMOL/L (98-107); CREATININE FOR GFR 0.86 MG/DL (0.55-1.30); GLOMERULAR FILTRATION RATE > 60.0 (>32); GLUCOSE, FASTING 92 MG/DL (74-106); POTASSIUM SERUM 4.3 MMOL/L (3.5-5.1); SODIUM LEVEL 140 MMOL/L (136-145)
== END ==
LOC: SKLAB6 07:00
PROVIDERS: ATTEND Internal Medicine
DX: E03.9 Hypothyroidism, unspecified (principal)

== ENCOUNTER → 2023-04-29 | Outpatient (REF) | payer MEDICARE, OTHER | LOC: SKLAB6 06:39 | PROVIDERS: ATTEND Internal Medicine | DX: E03.9 Hypothyroidism, unspecified (principal) ==

== ENCOUNTER → 2023-05-20 | Outpatient (REF) | payer MEDICARE, OTHER | LOC: SKLAB6 07:03 | PROVIDERS: ATTEND Internal Medicine | DX: E03.9 Hypothyroidism, unspecified (principal) ==

== ENCOUNTER → 2023-05-20 | Outpatient (REF) | payer MEDICARE, OTHER | LOC: SKLAB6 06:56 | PROVIDERS: ATTEND Internal Medicine | DX: E03.9 Hypothyroidism, unspecified (principal); Z53.8 Procedure and treatment not carried out for other reasons ==

== ENCOUNTER 2023-06-09 13:06 | Emergency (ER) | payer MEDICARE, OTHER ==
[2023-06-09] MEDS ORDERED: AMLO25TA PO (13:41)
[2023-06-09] MEDS ORDERED: ACET32TAB PO (13:41)
[2023-06-09] MEDS ORDERED: SERO1TAB3 PO ×2 (13:41)
[2023-06-09] MEDS: DERMABOND TOPICAL SKIN ADHESIVE TOP ONE (14:30)
[2023-06-09] MEDS: traMADol 50 MG TAB PO ONE (14:50)
[2023-06-09] MEDS ORDERED: APAP325T4 PO (15:21)
[2023-06-09] MEDS ORDERED: SERT25TA21 PO (15:21)
[2023-06-09] MEDS ORDERED: BISA10SU PR (15:21)
[2023-06-09] MEDS ORDERED: ACET-907 PO (15:21)
[2023-06-09] MEDS ORDERED: MILKSUS3 PO (15:21)
[2023-06-09] MEDS ORDERED: LEVO100T54 PO (15:21)
[2023-06-09] MEDS ORDERED: HOME MED LIST COMPLETE! XX SCH (15:25)
[2023-06-09] MEDS ORDERED: TRAM50TA2 PO (16:05)
[2023-06-09 16:26] VITALS: BP 129/61; TEMP 98.3; O2SAT 95
== END 2023-06-09 16:34 | disposition home or self-care (01) ==
LOC: EDBD 13:06 → M ED 13:06
DX: S01.81XA Laceration without foreign body of other part of head, initial encounter (principal); S42.351A Displaced comminuted fracture of shaft of humerus, right arm, initial encounter for closed fracture; W01.0XXA Fall on same level from slipping, tripping and stumbling without subsequent striking against object, initial encounter; I10 Essential (primary) hypertension; E78.5 Hyperlipidemia, unspecified; K21.9 Gastro-esophageal reflux disease without esophagitis; F41.9 Anxiety disorder, unspecified; F03.90 Unspecified dementia, unspecified severity, without behavioral disturbance, psychotic disturbance, mood disturbance, and anxiety; F32.9 Major depressive disorder, single episode, unspecified; M19.90 Unspecified osteoarthritis, unspecified site; Y92.128 Other place in nursing home as the place of occurrence of the external cause; Y93.89 Activity, other specified; Y99.9 Unspecified external cause status; Z88.5 Allergy status to narcotic agent; Z88.6 Allergy status to analgesic agent; Z88.7 Allergy status to serum and vaccine; Z88.8 Allergy status to other drugs, medicaments and biological substances; Z91.041 Radiographic dye allergy status; Z91.013 Allergy to seafood; Z79.891 Long term (current) use of opiate analgesic; Z79.899 Other long term (current) drug therapy

== ENCOUNTER → 2023-06-18 | Outpatient (CLI) | payer MEDICARE, OTHER ==
[~2023-06-18] MED LIST changes: +ACET-907 PO; +ACET32TAB PO; +AMLO25TA PO; +APAP325T4 PO; +BISA10SU PR; +LEVO100T54 PO; +MILKSUS3 PO; +SERO1TAB3 PO; +TRAM50TA2 PO
== END ==
LOC: M SOG 14:57
PROVIDERS: ATTEND Orthopaedic Surgery
DX: S42.91XA Fracture of right shoulder girdle, part unspecified, initial encounter for closed fracture (principal); Y92.9 Unspecified place or not applicable; Y93.9 Activity, unspecified

== ENCOUNTER 2023-07-01 10:35 | Inpatient (IN) | payer MEDICARE, OTHER ==
[~2023-07-01] VITALS: Ht 160 cm; Wt 67.2 kg
[2023-07-01] MEDS ORDERED: AMIODARONE 150MG/3ML VIAL IVP STA (10:52)
[2023-07-01] MEDS ORDERED: AMIODARONE HCL 150 MG/100 ML PREMIXED BAG (NEXTERONE) As Ordered ONE (10:57)
[2023-07-01 11:14] LABS: VENOUS BASE EXCESS -7.8 (-2.0-2.0); VENOUS HCO3 18.6 MMOL/L (23.0-27.0); VENOUS O2 SATURATION 75.1 % (60.0-80.0); VENOUS PARTIAL PRESSURE CO2 40.7 mmHg (38.0-50.0); VENOUS PARTIAL PRESSURE O2 44.2 mmHg (30.0-50.0); VENOUS PH 7.277 UNITS (7.330-7.430); VENOUS STANDARD HCO3 17.8 MMOL/L; VENOUS TOTAL CO2 19.8 MMOL/L (24.0-28.0)
[2023-07-01] MEDS: NS 1,000 ML IV ONE (11:16)
[2023-07-01] MEDS: AMIODARONE HCL 150 MG in IV 1 EA IV ONE (11:16)
[2023-07-01] MEDS: PIPERACILLIN/TAZOBACTAM SOD 4.5 GM in D5W MINI-BAG PLUS 50 ML IV ONE (11:20)
[2023-07-01] MEDS: AMIODARONE HCL 360 MG in IV 1 EA IV SCH ×2 (11:24→17:35)
[2023-07-01] MEDS ORDERED: NYAM10003 TOP (11:33)
[2023-07-01] MEDS ORDERED: HOME MED LIST COMPLETE! XX SCH (11:35)
[2023-07-01 11:49] LABS: CK-MB VALUE MASS < 1.0 NG/ML (<3.6)
[2023-07-01 11:50] LABS: LIPASE 28 U/L (12-53)
[2023-07-01 11:52] LABS: ALBUMIN 2.8 G/DL (3.2-5.2); ALKALINE PHOSPHATASE 134 U/L (46-116); ALT/SGPT 12 U/L (7.0-40); AST/SGOT 19 U/L (<34); BILIRUBIN,DIRECT 0.2 MG/DL (<0.4); BILIRUBIN,TOTAL 0.4 MG/DL (0.3-1.2); BLOOD UREA NITROGEN 13 MG/DL (9-23); CARBON DIOXIDE LEVEL 21 MMOL/L (20-31); CHLORIDE LEVEL 112 MMOL/L (98-107); CREATININE FOR GFR 0.93 MG/DL (0.55-1.30); GLOMERULAR FILTRATION RATE > 60.0 (>32); GLUCOSE, FASTING 194 MG/DL (74-106); POTASSIUM SERUM 3.9 MMOL/L (3.5-5.1); SODIUM LEVEL 146 MMOL/L (136-145); TOTAL PROTEIN 6.1 G/DL (5.7-8.2)
[2023-07-01 11:53] LABS: THYROID STIMULATING HORMONE 5.153 uIU/ML (0.55-4.78)
[2023-07-01 11:54] LABS: FREE T4 1.18 NG/DL (0.89-1.76)
[2023-07-01 11:58] LABS: CPK CREATINE PHOSPHOKINASE 26 U/L (34-145); MB/CK RELATIVE INDEX 3.84 (< OR =4)
[2023-07-01 12:01] LABS: BASO % 0.2 % (0.0-1.0); EOS # 0.1 10^3/uL (0.0-0.5); EOS % 0.5 % (0.0-3.0); HEMOGLOBIN 11.5 g/dl (12.0-15.5); LYMPH # 0.8 10^3/uL (1.5-5.0); LYMPH % 8.1 % (24.0-44.0); MEAN CORPUSCULAR HEMOGLOBIN 29.9 pg (27.0-33.0); MEAN CORPUSCULAR HGB CONC 31.1 g/dl (32.0-36.5); MEAN CORPUSCULAR VOLUME 96.1 fl (80.0-96.0); MONO # 0.5 10^3/uL (0.0-0.8); MONO % 5.1 % (2.0-8.0); NEUTROPHILS # 8.7 10^3/uL (1.5-8.5); NEUTROPHILS % 85.7 % (36.0-66.0); PLATELET COUNT, AUTOMATED 162 10^3/uL (150-450); RED BLOOD COUNT 3.85 10^6/uL (4.00-5.40); WHITE BLOOD COUNT 10.2 10^3/uL (4.0-10.0)
[2023-07-01 13:18] LABS: INR 1.29; PARTIAL THROMBOPLASTIN TIME 28.4 SECONDS (24.8-34.2); PROTHROMBIN TIME 15.7 SECONDS (12.5-14.5)
[2023-07-01 13:30] LABS: CK-MB VALUE MASS < 1.0 NG/ML (<3.6)
[2023-07-01 13:31] LABS: CPK CREATINE PHOSPHOKINASE 26 U/L (34-145); MB/CK RELATIVE INDEX 3.84 (< OR =4)
[2023-07-01] MEDS: LR 1,000 ML IV SCH (13:56)
[2023-07-01 16:57] LABS: CK-MB VALUE MASS < 1.0 NG/ML (<3.6)
[2023-07-01 16:59] LABS: CPK CREATINE PHOSPHOKINASE 29 U/L (34-145); MB/CK RELATIVE INDEX 3.44 (< OR =4)
[2023-07-01] MEDS ORDERED: AMIODARONE HCL 360 MG in IV 1 EA IV SCH (17:10)
[2023-07-01 17:22] LABS: HEMOGLOBIN A1c 5.8 % (4.0-6.0)
[2023-07-01] MEDS ORDERED: MOM 30ML SUSPENSION UDC PO PRN (17:35)
[2023-07-01] MEDS ORDERED: BISACODYL 10MG SUPP PR PRN (17:35)
[2023-07-01 17:49] LABS: BLOOD UREA NITROGEN 13 MG/DL (9-23); CALCIUM LEVEL 8.1 MG/DL (8.3-10.6); CARBON DIOXIDE LEVEL 24 MMOL/L (20-31); CHLORIDE LEVEL 111 MMOL/L (98-107); GLOMERULAR FILTRATION RATE > 60.0 (>32); GLUCOSE, FASTING 144 MG/DL (74-106); MAGNESIUM LEVEL 1.9 MG/DL (1.8-2.4); POTASSIUM SERUM 3.8 MMOL/L (3.5-5.1); SODIUM LEVEL 144 MMOL/L (136-145)
[2023-07-01 18:21] LABS: THYROID STIMULATING HORMONE 3.289 uIU/ML (0.55-4.78)
[2023-07-01 18:27] VITALS: BP 129/85; TEMP 97.8; O2SAT 90
[2023-07-01] MEDS: METOPROLOL TART 12.5 MG PER 1/2 TAB PO SCH (19:30)
[2023-07-01] MEDS: MAG SULF 1GM/100ML (MAG RUN) 1 GM in IV 1 EA IV ONE (19:31)
[2023-07-01 20:38] VITALS: BP 106/61; TEMP 96.9; O2SAT 90
[2023-07-01] MEDS: QUEtiapine FUMARATE 25 MG TAB PO SCH (20:50)
[2023-07-01] MEDS: ACETAMINOPHEN TAB 650MG DOSE (2X325MG) PO SCH (20:51)
[2023-07-01] MEDS: APIXABAN 5 MG TAB (ELIQUIS) PO SCH (20:51)
[2023-07-01] MEDS: SERTRALINE HCL 25 MG TABLET PO SCH (20:52)
[2023-07-01] MEDS: NYSTATIN 100,000 UNITS/GM TOPICAL PWD 15GM TOP SCH (21:00)
[2023-07-01 23:38] VITALS: BP 101/53; TEMP 96.9; O2SAT 97
[2023-07-02 00:57] LABS: BLOOD UREA NITROGEN 11 MG/DL (9-23); CALCIUM LEVEL 8.2 MG/DL (8.3-10.6); CARBON DIOXIDE LEVEL 22 MMOL/L (20-31); CHLORIDE LEVEL 110 MMOL/L (98-107); CREATININE FOR GFR 0.84 MG/DL (0.55-1.30); GLOMERULAR FILTRATION RATE > 60.0 (>32); GLUCOSE, FASTING 139 MG/DL (74-106); MAGNESIUM LEVEL 2.1 MG/DL (1.8-2.4); POTASSIUM SERUM 3.7 MMOL/L (3.5-5.1); SODIUM LEVEL 142 MMOL/L (136-145)
[2023-07-02 03:39] VITALS: BP 118/80; TEMP 96.7; O2SAT 97
[2023-07-02 05:44] LABS: HEMATOCRIT 35.2 % (36.0-47.0); HEMOGLOBIN 11.1 g/dl (12.0-15.5); MEAN CORPUSCULAR HEMOGLOBIN 29.8 pg (27.0-33.0); MEAN CORPUSCULAR HGB CONC 31.5 g/dl (32.0-36.5); MEAN CORPUSCULAR VOLUME 94.6 fl (80.0-96.0); PLATELET COUNT, AUTOMATED 187 10^3/uL (150-450); RED BLOOD COUNT 3.72 10^6/uL (4.00-5.40); WHITE BLOOD COUNT 8.6 10^3/uL (4.0-10.0)
[2023-07-02 06:01] LABS: BLOOD UREA NITROGEN 10 MG/DL (9-23); CALCIUM LEVEL 8.1 MG/DL (8.3-10.6); CARBON DIOXIDE LEVEL 23 MMOL/L (20-31); CHLORIDE LEVEL 111 MMOL/L (98-107); CREATININE FOR GFR 0.79 MG/DL (0.55-1.30); GLOMERULAR FILTRATION RATE > 60.0 (>32); GLUCOSE, FASTING 114 MG/DL (74-106); POTASSIUM SERUM 3.6 MMOL/L (3.5-5.1); SODIUM LEVEL 144 MMOL/L (136-145)
[2023-07-02] MEDS: LEVOTHYROXINE 100MCG TABLET (0.1MG) PO SCH (06:08)
[2023-07-02 08:16] VITALS: BP 148/76; TEMP 98; O2SAT 96
[2023-07-02] MEDS: NYSTATIN 100,000 UNITS/GM TOPICAL PWD 15GM TOP SCH (09:00)
[2023-07-02] MEDS: VANCOMYCIN HCL 750 MG, VIAL MATE ADAPTER 1 EACH in D5W 250 ML IV ONE ×2 (09:26→10:35)
[2023-07-02] MEDS: QUEtiapine FUMARATE 12.5 MG HALF-TAB PO SCH (10:35)
[2023-07-02] MEDS: POTASSIUM CHLORIDE 10MEQ SR TABLET PO ONE (10:40)
[2023-07-02] MEDS: AMIODARONE 200 MG TAB (PACERONE) PO SCH (10:40)
[2023-07-02 12:55] VITALS: BP 143/65; TEMP 97.4; O2SAT 94
[2023-07-02] MEDS: OLANZapine INTRAMUSCULAR 10MG VIAL IM ONE (16:05)
[2023-07-02 17:35] VITALS: BP 143/65; TEMP 97.6; O2SAT 95
[2023-07-02 19:46] VITALS: BP 157/74; TEMP 98.6; O2SAT 90
[2023-07-02] MEDS: VANCOMYCIN HCL 750 MG, VIAL MATE ADAPTER 1 EACH in D5W 250 ML IV SCH (20:55)
[2023-07-03 00:12] VITALS: BP 140/71; TEMP 97.2; O2SAT 92
[2023-07-03 05:52] VITALS: BP 155/75; TEMP 98.8; O2SAT 90
[2023-07-03 07:43] VITALS: BP 163/77; TEMP 98.4; O2SAT 93
[2023-07-03 08:26] LABS: BASO % 0.3 % (0.0-1.0); EOS # 0.3 10^3/uL (0.0-0.5); EOS % 3.4 % (0.0-3.0); HEMATOCRIT 33.8 % (36.0-47.0); HEMOGLOBIN 11.2 g/dl (12.0-15.5); LYMPH # 1.2 10^3/uL (1.5-5.0); LYMPH % 16.5 % (24.0-44.0); MEAN CORPUSCULAR HEMOGLOBIN 30.7 pg (27.0-33.0); MEAN CORPUSCULAR HGB CONC 33.1 g/dl (32.0-36.5); MEAN CORPUSCULAR VOLUME 92.6 fl (80.0-96.0); MONO # 0.7 10^3/uL (0.0-0.8); MONO % 10.2 % (2.0-8.0); NEUTROPHILS # 5.1 10^3/uL (1.5-8.5); NEUTROPHILS % 69.3 % (36.0-66.0); PLATELET COUNT, AUTOMATED 170 10^3/uL (150-450); RED BLOOD COUNT 3.65 10^6/uL (4.00-5.40); WHITE BLOOD COUNT 7.3 10^3/uL (4.0-10.0)
[2023-07-03 08:50] LABS: BLOOD UREA NITROGEN 8 MG/DL (9-23); CALCIUM LEVEL 8.3 MG/DL (8.3-10.6); CARBON DIOXIDE LEVEL 28 MMOL/L (20-31); CHLORIDE LEVEL 112 MMOL/L (98-107); CREATININE FOR GFR 0.82 MG/DL (0.55-1.30); GLOMERULAR FILTRATION RATE > 60.0 (>32); GLUCOSE, FASTING 110 MG/DL (74-106); MAGNESIUM LEVEL 1.9 MG/DL (1.8-2.4); POTASSIUM SERUM 3.8 MMOL/L (3.5-5.1); SODIUM LEVEL 144 MMOL/L (136-145)
[2023-07-03] MEDS ORDERED: AMIODARONE 200 MG TAB (PACERONE) PO SCH (09:00)
[2023-07-03] MEDS: MIRALAX *UNIT DOSE* 17GM PACKET PO SCH (10:23)
[2023-07-03] MEDS: AMIODARONE 200 MG TAB (PACERONE) PO SCH (10:24)
[2023-07-03] MEDS: METOPROLOL TART 25 MG TABLET PO SCH (10:25)
[2023-07-03 15:44] VITALS: BP 116/64; TEMP 97; O2SAT 92
[2023-07-03 20:20] VITALS: BP 135/64; TEMP 97.2; O2SAT 92
[2023-07-04 05:28] VITALS: BP 157/76; TEMP 97.5; O2SAT 93
[2023-07-04 06:24] LABS: BASO # 0.1 10^3/uL (0.0-0.2); BASO % 0.8 % (0.0-1.0); EOS # 0.4 10^3/uL (0.0-0.5); EOS % 5.9 % (0.0-3.0); HEMOGLOBIN 11.4 g/dl (12.0-15.5); LYMPH # 2.3 10^3/uL (1.5-5.0); LYMPH % 32.7 % (24.0-44.0); MEAN CORPUSCULAR HEMOGLOBIN 29.8 pg (27.0-33.0); MEAN CORPUSCULAR HGB CONC 31.7 g/dl (32.0-36.5); MEAN CORPUSCULAR VOLUME 94.2 fl (80.0-96.0); MONO # 0.6 10^3/uL (0.0-0.8); MONO % 8.8 % (2.0-8.0); NEUTROPHILS # 3.7 10^3/uL (1.5-8.5); NEUTROPHILS % 51.4 % (36.0-66.0); PLATELET COUNT, AUTOMATED 200 10^3/uL (150-450); RED BLOOD COUNT 3.82 10^6/uL (4.00-5.40); WHITE BLOOD COUNT 7.1 10^3/uL (4.0-10.0)
[2023-07-04 06:48] LABS: CALCIUM LEVEL 8.3 MG/DL (8.3-10.6); CREATININE FOR GFR 0.99 MG/DL (0.55-1.30); GLOMERULAR FILTRATION RATE 57.5 (>32); POTASSIUM SERUM 3.5 MMOL/L (3.5-5.1)
[2023-07-04 07:58] VITALS: BP 150/68; TEMP 97; O2SAT 94
[2023-07-04 15:40] VITALS: BP 112/62; TEMP 97.2; O2SAT 93
[2023-07-04 19:00] VITALS: BP 143/61; TEMP 97; O2SAT 95
[2023-07-05] VITALS (8 sets, daily range): BP systolic 119–152; BP diastolic 68–107; TEMP 97.2–97.7; O2SAT 90–97
[2023-07-05] MEDS: ACETAMINOPHEN TAB 650MG DOSE (2X325MG) PO PRN (01:11)
[2023-07-05 06:19] LABS: BASO % 0.6 % (0.0-1.0); EOS # 0.3 10^3/uL (0.0-0.5); EOS % 3.9 % (0.0-3.0); HEMATOCRIT 35.7 % (36.0-47.0); HEMOGLOBIN 11.4 g/dl (12.0-15.5); LYMPH # 2.2 10^3/uL (1.5-5.0); LYMPH % 32.7 % (24.0-44.0); MEAN CORPUSCULAR HEMOGLOBIN 29.6 pg (27.0-33.0); MEAN CORPUSCULAR HGB CONC 31.9 g/dl (32.0-36.5); MEAN CORPUSCULAR VOLUME 92.7 fl (80.0-96.0); MONO # 0.6 10^3/uL (0.0-0.8); MONO % 8.6 % (2.0-8.0); NEUTROPHILS # 3.7 10^3/uL (1.5-8.5); NEUTROPHILS % 53.8 % (36.0-66.0); PLATELET COUNT, AUTOMATED 225 10^3/uL (150-450); RED BLOOD COUNT 3.85 10^6/uL (4.00-5.40); WHITE BLOOD COUNT 6.9 10^3/uL (4.0-10.0)
[2023-07-05 06:41] LABS: BLOOD UREA NITROGEN 9 MG/DL (9-23); CARBON DIOXIDE LEVEL 28 MMOL/L (20-31); CHLORIDE LEVEL 113 MMOL/L (98-107); CREATININE FOR GFR 0.95 MG/DL (0.55-1.30); GLOMERULAR FILTRATION RATE > 60.0 (>32); GLUCOSE, FASTING 87 MG/DL (74-106); MAGNESIUM LEVEL 1.9 MG/DL (1.8-2.4); POTASSIUM SERUM 3.7 MMOL/L (3.5-5.1); SODIUM LEVEL 147 MMOL/L (136-145)
[2023-07-06 06:12] VITALS: BP 134/70; TEMP 97.2; O2SAT 94
[2023-07-06 06:25] LABS: BASO # 0.1 10^3/uL (0.0-0.2); BASO % 0.7 % (0.0-1.0); EOS # 0.3 10^3/uL (0.0-0.5); EOS % 3.8 % (0.0-3.0); HEMATOCRIT 36.5 % (36.0-47.0); HEMOGLOBIN 11.8 g/dl (12.0-15.5); LYMPH # 2.2 10^3/uL (1.5-5.0); LYMPH % 31.9 % (24.0-44.0); MEAN CORPUSCULAR HEMOGLOBIN 29.9 pg (27.0-33.0); MEAN CORPUSCULAR HGB CONC 32.3 g/dl (32.0-36.5); MEAN CORPUSCULAR VOLUME 92.4 fl (80.0-96.0); MONO # 0.5 10^3/uL (0.0-0.8); MONO % 7.9 % (2.0-8.0); NEUTROPHILS # 3.8 10^3/uL (1.5-8.5); NEUTROPHILS % 55.3 % (36.0-66.0); PLATELET COUNT, AUTOMATED 238 10^3/uL (150-450); RED BLOOD COUNT 3.95 10^6/uL (4.00-5.40); WHITE BLOOD COUNT 6.8 10^3/uL (4.0-10.0)
[2023-07-06 06:46] LABS: CALCIUM LEVEL 8.3 MG/DL (8.3-10.6); CREATININE FOR GFR 0.97 MG/DL (0.55-1.30); GLOMERULAR FILTRATION RATE 58.8 (>32); POTASSIUM SERUM 3.6 MMOL/L (3.5-5.1)
[2023-07-06 07:58] VITALS: BP 132/63
[2023-07-06] MEDS ORDERED: ELIQ5TAB PO (10:18)
[2023-07-06] MEDS ORDERED: AMIO200T49 PO (10:18)
[2023-07-06] MEDS ORDERED: METO1TAB87 PO (10:18)
== END 2023-07-06 11:51 | DRG 281 ==
LOC: M ED 10:35 → M ED INP 16:26 → M PCU 17:50 → OBSVTOIN 07-02 07:37 → M MSPAV 07-05 00:36
PROVIDERS: ADMIT Internal Medicine; ATTEND Internal Medicine
DX: I48.92 Unspecified atrial flutter (principal); I21.A1 Myocardial infarction type 2; E87.20 Acidosis, unspecified; F32.A Depression, unspecified; E78.5 Hyperlipidemia, unspecified; E03.9 Hypothyroidism, unspecified; R19.7 Diarrhea, unspecified; F02.80 Dementia in other diseases classified elsewhere, unspecified severity, without behavioral disturbance, psychotic disturbance, mood disturbance, and anxiety; I10 Essential (primary) hypertension; J45.909 Unspecified asthma, uncomplicated; G47.33 Obstructive sleep apnea (adult) (pediatric); K21.9 Gastro-esophageal reflux disease without esophagitis; I95.9 Hypotension, unspecified; R00.1 Bradycardia, unspecified; K59.00 Constipation, unspecified; F39 Unspecified mood [affective] disorder; G30.9 Alzheimer's disease, unspecified; Z85.51 Personal history of malignant neoplasm of bladder; Z91.013 Allergy to seafood; Z88.5 Allergy status to narcotic agent; Z88.8 Allergy status to other drugs, medicaments and biological substances; Z91.040 Latex allergy status; Z79.899 Other long term (current) drug therapy; Z88.7 Allergy status to serum and vaccine; Z88.4 Allergy status to anesthetic agent; Z87.891 Personal history of nicotine dependence; Z66 Do not resuscitate; R73.03 Prediabetes

== ENCOUNTER → 2023-07-14 | Outpatient (REF) | payer MEDICARE, OTHER ==
[~2023-07-14] MED LIST changes: +AMIO200T49 PO; +ELIQ5TAB PO; +METO1TAB87 PO; +NYAM10003 TOP
== END ==
LOC: M SOG 07:55 → M RAD 07:55 → EDSTATUS 08:53
PROVIDERS: ATTEND Orthopaedic Surgery
DX: S42.211A Unspecified displaced fracture of surgical neck of right humerus, initial encounter for closed fracture (principal); W18.30XA Fall on same level, unspecified, initial encounter; Y92.009 Unspecified place in unspecified non-institutional (private) residence as the place of occurrence of the external cause; Y99.9 Unspecified external cause status; Y93.9 Activity, unspecified

== ENCOUNTER → 2023-07-22 | Outpatient (REF) | payer MEDICARE, OTHER ==
[2023-07-22 13:56] LABS: HEMATOCRIT 36.4 % (36.0-47.0); HEMOGLOBIN 11.6 g/dl (12.0-15.5); MEAN CORPUSCULAR HGB CONC 31.9 g/dl (32.0-36.5); PLATELET COUNT, AUTOMATED 219 10^3/uL (150-450)
[2023-07-22 14:07] LABS: ALBUMIN 3.3 G/DL (3.2-5.2); ALKALINE PHOSPHATASE 74 U/L (46-116); ALT/SGPT 16 U/L (7.0-40); AST/SGOT 13 U/L (<34); BILIRUBIN,TOTAL 0.7 MG/DL (0.3-1.2); BLOOD UREA NITROGEN 29 MG/DL (9-23); CALCIUM LEVEL 9.2 MG/DL (8.3-10.6); CARBON DIOXIDE LEVEL 27 MMOL/L (20-31); CHLORIDE LEVEL 108 MMOL/L (98-107); GLOMERULAR FILTRATION RATE > 60.0 (>32); GLUCOSE, FASTING 123 MG/DL (74-106); POTASSIUM SERUM 4.2 MMOL/L (3.5-5.1); SODIUM LEVEL 142 MMOL/L (136-145); TOTAL PROTEIN 5.9 G/DL (5.7-8.2)
[2023-07-22 14:09] LABS: THYROID STIMULATING HORMONE 1.918 uIU/ML (0.55-4.78)
== END ==
LOC: SKLAB6 07:00
PROVIDERS: ATTEND Internal Medicine
DX: E03.9 Hypothyroidism, unspecified (principal); I10 Essential (primary) hypertension

== ENCOUNTER → 2023-08-13 | Outpatient (REF) | payer MEDICARE, OTHER | LOC: EDSTATUS 08:43 → M SOG 08:53 | PROVIDERS: ATTEND Orthopaedic Surgery | DX: S42.211P Unspecified displaced fracture of surgical neck of right humerus, subsequent encounter for fracture with malunion (principal); Z53.9 Procedure and treatment not carried out, unspecified reason ==

== ENCOUNTER → 2023-08-17 | Outpatient (REF) | payer MEDICARE, OTHER | LOC: M SOG 07:59 → EDSTATUS 09:44 | PROVIDERS: ATTEND Orthopaedic Surgery | DX: S42.211P Unspecified displaced fracture of surgical neck of right humerus, subsequent encounter for fracture with malunion (principal) ==

== ENCOUNTER → 2023-09-21 | Outpatient (REF) | payer MEDICARE, OTHER ==
[2023-09-21 10:02] LABS: CALCIUM LEVEL 8.6 MG/DL (8.3-10.6); CREATININE FOR GFR 0.96 MG/DL (0.55-1.30); GLOMERULAR FILTRATION RATE 59.4 (>32); POTASSIUM SERUM 4.4 MMOL/L (3.5-5.1)
== END ==
LOC: SKLAB6 07:11
PROVIDERS: ATTEND Internal Medicine
DX: I50.9 Heart failure, unspecified (principal)

== ENCOUNTER → 2023-09-28 | Outpatient (REF) | LOC: SKLAB6 13:42 | PROVIDERS: ATTEND Internal Medicine | DX: I45.19 Other right bundle-branch block (principal) ==

== ENCOUNTER → 2023-10-12 | Outpatient (REF) | payer MEDICARE, OTHER ==
[2023-10-12 10:20] LABS: BLOOD UREA NITROGEN 15 MG/DL (9-23); CALCIUM LEVEL 8.4 MG/DL (8.3-10.6); CARBON DIOXIDE LEVEL 26 MMOL/L (20-31); CHLORIDE LEVEL 108 MMOL/L (98-107); CREATININE FOR GFR 0.91 MG/DL (0.55-1.30); GLOMERULAR FILTRATION RATE > 60.0 (>32); GLUCOSE, FASTING 139 MG/DL (74-106); POTASSIUM SERUM 3.7 MMOL/L (3.5-5.1); SODIUM LEVEL 140 MMOL/L (136-145)
[2023-10-12 10:33] LABS: THYROID STIMULATING HORMONE 7.076 uIU/ML (0.55-4.78)
== END ==
LOC: SKLAB6 07:07
PROVIDERS: ATTEND Internal Medicine
DX: I50.9 Heart failure, unspecified (principal)

== ENCOUNTER → 2023-11-18 | Outpatient (REF) | payer MEDICARE, OTHER | LOC: SKLAB6 06:23 | PROVIDERS: ATTEND Internal Medicine | DX: E03.9 Hypothyroidism, unspecified (principal) ==

== ENCOUNTER → 2023-12-30 | Outpatient (REF) | payer MEDICARE, OTHER | LOC: SKLAB6 06:49 | PROVIDERS: ATTEND Internal Medicine | DX: E03.9 Hypothyroidism, unspecified (principal) ==

== ENCOUNTER → 2024-01-20 | Outpatient (REF) | payer MEDICARE, OTHER ==
[2024-01-20 09:37] LABS: HEMATOCRIT 38.6 % (36.0-47.0); HEMOGLOBIN 12.7 g/dl (12.0-15.5); MEAN CORPUSCULAR HEMOGLOBIN 31.5 pg (27.0-33.0); MEAN CORPUSCULAR HGB CONC 32.9 g/dl (32.0-36.5); MEAN CORPUSCULAR VOLUME 95.8 fl (80.0-96.0); PLATELET COUNT, AUTOMATED 233 10^3/uL (150-450); RED BLOOD COUNT 4.03 10^6/uL (4.00-5.40); WHITE BLOOD COUNT 7.9 10^3/uL (4.0-10.0)
[2024-01-20 09:53] LABS: ALKALINE PHOSPHATASE 86 U/L (35-104); ALT/SGPT 15 U/L (7.0-40); AST/SGOT 16 U/L (<34); BILIRUBIN,TOTAL 0.3 MG/DL (0.3-1.2); BLOOD UREA NITROGEN 15 MG/DL (9-23); CALCIUM LEVEL 9.3 MG/DL (8.3-10.6); CARBON DIOXIDE LEVEL 28 MMOL/L (20-31); CHLORIDE LEVEL 105 MMOL/L (98-107); CREATININE FOR GFR 0.86 MG/DL (0.55-1.30); GLOMERULAR FILTRATION RATE > 60.0 (>32); GLUCOSE, FASTING 156 MG/DL (74-106); POTASSIUM SERUM 4.3 MMOL/L (3.5-5.1); SODIUM LEVEL 142 MMOL/L (136-145); TOTAL PROTEIN 6.9 G/DL (5.7-8.2)
[2024-01-20 09:55] LABS: THYROID STIMULATING HORMONE 5.339 uIU/ML (0.55-4.78)
== END ==
LOC: SKLAB6 07:00
PROVIDERS: ATTEND Internal Medicine
DX: E03.9 Hypothyroidism, unspecified (principal); I10 Essential (primary) hypertension

== ENCOUNTER → 2024-07-20 | Outpatient (REF) | payer MEDICARE, OTHER ==
[~2024-07-20] MED LIST changes: -ACE65ERTAB PO; +ACET-1593 PO; -AMIO200T49 PO; +AMIO200T54 PO; -PRAV20TA2 PO; +PRAV20TA78 PO
[2024-07-20 08:07] LABS: HEMATOCRIT 38.1 % (36.0-47.0); HEMOGLOBIN 12.3 g/dl (12.0-15.5); MEAN CORPUSCULAR HEMOGLOBIN 30.9 pg (27.0-33.0); MEAN CORPUSCULAR HGB CONC 32.3 g/dl (32.0-36.5); MEAN CORPUSCULAR VOLUME 95.7 fl (80.0-96.0); PLATELET COUNT, AUTOMATED 239 10^3/uL (150-450); RED BLOOD COUNT 3.98 10^6/uL (4.00-5.40); WHITE BLOOD COUNT 7.2 10^3/uL (4.0-10.0)
[2024-07-20 08:41] LABS: THYROID STIMULATING HORMONE 5.219 uIU/ML (0.55-4.78)
[2024-07-20 08:47] LABS: ALBUMIN 3.3 G/DL (3.2-5.2); BILIRUBIN,TOTAL 0.3 MG/DL (0.3-1.2); CALCIUM LEVEL 8.9 MG/DL (8.3-10.6); CREATININE FOR GFR 0.9 MG/DL (0.55-1.30); GLOMERULAR FILTRATION RATE 64.2 (>32); POTASSIUM SERUM 4.3 MMOL/L (3.5-5.1); TOTAL PROTEIN 6.6 G/DL (5.7-8.2)
== END ==
LOC: SKLAB6 06:36
PROVIDERS: ATTEND Internal Medicine
DX: I10 Essential (primary) hypertension (principal); F03.90 Unspecified dementia, unspecified severity, without behavioral disturbance, psychotic disturbance, mood disturbance, and anxiety

== ENCOUNTER → 2024-09-01 | Outpatient (REF) | payer MEDICARE, OTHER ==
[2024-09-01 09:49] LABS: THYROXINE (T4) 6.5 UG/DL (4.5-10.9)
== END ==
LOC: SKLAB6 08:32
PROVIDERS: ATTEND Internal Medicine
DX: E03.9 Hypothyroidism, unspecified (principal)

== ENCOUNTER → 2024-12-13 | Outpatient (REF) | payer MEDICARE, OTHER ==
[2024-12-13 08:35] LABS: PLATELET COUNT, AUTOMATED 263 10^3/uL (150-450)
[2024-12-13 09:05] LABS: ALT/SGPT < 9 U/L (7.0-40); AST/SGOT 18 U/L (<34); CALCIUM LEVEL 8.6 MG/DL (8.3-10.6); CARBON DIOXIDE LEVEL 28 MMOL/L (20-31); CHLORIDE LEVEL 107 MMOL/L (98-107); CREATININE FOR GFR 0.81 MG/DL (0.55-1.30); GLOMERULAR FILTRATION RATE 72.4 (>32); POTASSIUM SERUM 4.1 MMOL/L (3.5-5.1); SODIUM LEVEL 144 MMOL/L (136-145)
[2024-12-13 09:19] LABS: ESTIMATED AVERAGE GLUCOSE 131.0 MG/DL (60-110)
== END ==
LOC: SKLAB6 07:00
PROVIDERS: ATTEND Family Medicine
DX: I48.91 Unspecified atrial fibrillation (principal); N18.9 Chronic kidney disease, unspecified; Z79.899 Other long term (current) drug therapy

== ENCOUNTER → 2025-01-17 | Outpatient (REF) | payer MEDICARE, OTHER ==
[~2025-01-17] MED LIST changes: +ACET-1387 PO; -ACET-1593 PO
== END ==
LOC: SKLAB6 11:09
PROVIDERS: ATTEND Family Medicine
DX: Z11.2 Encounter for screening for other bacterial diseases (principal); Z20.818 Contact with and (suspected) exposure to other bacterial communicable diseases